=== PATIENT | male | born 1995 | race Caucasian/White ===

== ENCOUNTER 2016-05-20 12:11 | Emergency (ER) | payer MEDICAID, OTHER, SELFPAY ==
[~2016-05-20 12:11] MED LIST: ADDE30CA PO; ALBU1.25 INH; BACI500O8 TOP; BACT800T5 PO; FLUT11IN INH; MOTR200T44 PO; TYLE325T5 PO; ZYRT10CA PO
--- NOTE | 2016-05-20 14:06 | EDDOCDS ---
Physician Documentation [facility] Name: Juan Gomez Age: 21 yrs Sex: Male : 1995 Arrival Date: 05/20/2016 Time: 12:11 Bed TR8 Private MD: Clinton Mcknight Disposition: 05/20/16 13:21 Discharged to Home/Self Care. Impression: Dental caries - Tooth Pain/Abscess/Fracture. - Condition is Stable. - Discharge Instructions: Dental Pain, Tooth Fracture, Abscessed Tooth, [id number]. - Prescriptions for Clindamycin HCl 300 mg Oral Capsule - take 1 capsule by ORAL route every 6 hours; 40 capsule. Ibuprofen 800 mg Oral Tablet - take 1 tablet by ORAL route every 8 hours As needed take with food; 30 tablet. [place] 5- 325 mg Oral Tablet - take 1 tablet by ORAL route every 6 hours As needed MDD: 4 tabs; 6 tablet. - Referral List Call for Appointment, Dental Referral List, Medication Reconciliation, Local Pharmacy Hours form. - Follow up: Dentist Your; When: 1 - 2 days; Reason: Further diagnostic work-up, Recheck today's complaints, Continuance of care. Follow [facility]: [facility] ; When: 1 - 2 days; Reason: Recheck today's complaints, Continuance of care. Follow up: Emergency Department; Reason: Worsening of conditions. - Problem is new. - Symptoms are unchanged. Historical: - Allergies: no known allergies; - Home Meds: 1. ibuprofen 800 mg Oral tab as needed (Last dose: 05/20/2016 09:00) - PMHx: Asthma; - PSHx: ganglion cyst removal; Adenoidectomy; Tubes in ears; - Social history: Smoking status: Patient uses tobacco products, heavy tobacco smoker. No barriers to communication noted. - Family history: Not pertinent. - : The pt / caregiver states he / she is not on anticoagulants. Home medication list is obtained from the patient. - Exposure Risk Screening:: None identified. Vital Signs: 05/20 12:13 BP 163 / 103; Pulse 89; Resp 18 S; Temp 98.3(O); Pulse Ox 100% on R/A; Weight 63.5 kg / gr2 139.99 lbs (R); Height 6 ft. 1 in. (185.42 cm) (R); Pain 8/10; 13:01 BP 142 / 84 LA Sitting (man/); srm 12:13 Body Mass Index 18.47 (63.50 kg, 185.42 cm) gr2 MDM: 12:57 Recheck B/P ordered. ef1 13:01 Financial registration complete. 13:08 [facility] Payment Agreement was scanned into [employer] and attached to record. Signatures: Joellen Soto, RN RN [facility] Marylou Enciso, Reg Reg Rosetta Whitney, PA-C PA-C 1 Cynthia Esteves RN RN [facility] The chart was reviewed and I authenticate all verbal orders and agree with the evaluation and treatment provided.Attachments: 13:08 [facility] Payment Agreement lg MTDD
--- NOTE | 2016-05-20 14:06 | EDDOCDS ---
Nurse's Notes [facility] Name: Juan Gomez Age: 21 yrs Sex: Male : 1995 Arrival Date: 05/20/2016 Time: 12:11 Bed TR8 Private MD: Clinton Mcknight Diagnosis: Dental caries-Tooth Pain/Abscess/Fracture Presentation: 05/20 12:16 Presenting complaint: Patient states: upper left jaw and cheek pain started yesterday [facility] feels it is from site of broken tooth, tender to touch face, can't eat. Adult Sepsis Screening: The patient does not have new or worsening altered mentation. Patient's respiratory rate is less than 22. Systolic blood pressure is greater than 100. Patient has a qSOFA score of 0- Negative Sepsis Screen. Suicide/Homicide risk assessment- the patient denies having any suicidal and/or homicidal ideations and does not present with any other emotional, behavioral or mental health complaints. Status: Patient is not a automobile service advisor or dependent. Transition of care: patient was not received from another setting of care. 12:16 Acuity: BRIANNA Level 4 [facility] 12:16 Method Of Arrival: Walkin/Carried/Asstd [facility] Triage Assessment: 12:19 General: Appears in no apparent distress, uncomfortable, Behavior is appropriate for [facility] age, cooperative. Pain: Location: nose and mouth Pain currently is 8 out of 10 on a pain scale. HIV screening NA for this visit Offered previously. EENT: Reports pain in nose, left cheek and mouth Pain is 8 out of 10 on a pain scale. Respiratory: Airway is patent Respiratory effort is even, unlabored, Respiratory pattern is regular, symmetrical. Derm: Skin is pink, warm & dry. Historical: - Allergies: no known allergies; - Home Meds: 1. ibuprofen 800 mg Oral tab as needed (Last dose: 05/20/2016 09:00) - PMHx: Asthma; - PSHx: ganglion cyst removal; Adenoidectomy; Tubes in ears; - Social history: Smoking status: Patient uses tobacco products, heavy tobacco smoker. No barriers to communication noted. - Family history: Not pertinent. - : The pt / caregiver states he / she is not on anticoagulants. Home medication list is obtained from the patient. - Exposure Risk Screening:: None identified. Screenin:36 Screening information is obtained from the patient. Fall risk: No risks identified. srm Assistance ADL's: requires no assistance with activities of daily living. Abuse/DV Screen: The patient / caregiver reports he/she is: not in a situation that causes fear, pain or injury. Nutritional screening: No deficits noted. Advance Directives: There is no active DNR order. home support is adequate. Assessment: 13:35 General: Appears in no apparent distress, Behavior is appropriate for age, cooperative. srm EENT:. 13:36 EENT: Reports left lower jaw pain. Respiratory: No deficits noted. GI: No deficits srm noted. Vital Signs: 12:13 BP 163 / 103; Pulse 89; Resp 18 S; Temp 98.3(O); Pulse Ox 100% on R/A; Weight 63.5 kg gr2 (R); Height 6 ft. 1 in. (185.42 cm) (R); Pain 8/10; 13:01 BP 142 / 84 LA Sitting (man/); srm 12:13 Body Mass Index 18.47 (63.50 kg, 185.42 cm) gr2 Vitals: 12:13 Log In Time: May 20, 2016 at 12:13. gr2 ED Course: 12:12 Patient visited by Maxwell Barragan. gr2 12:12 Clinton Mcknight is Private Physician. gr2 12:12 Patient moved to Waiting gr2 12:13 Patient visited by Maxwell Barragan. gr2 12:13 Patient moved to Pre RCE gr2 12:18 Triage Initiated [facility] 12:46 Patient moved to Triage 2 srm 12:56 [facility] Whitney [facility] ef1 12:56 Adriana Rodriguez MD is Attending Physician. ef1 12:56 Patient visited by Rosetta Whitney PA-C. ef1 13:07 Patient name changed from Juan\S\W\S\Rounds\S\ to Juan\S\Mik\S\Rounds. EDMS 13:08 [facility] Payment Agreement was scanned into [employer] and attached to record. lg 13:21 Your, Dentist is Referral Physician. ef1 13:21 [facility] is Referral Physician. ef1 13:35 Patient moved to TR3 srm 13:36 The patient / caregiver is instructed regarding the plan of care and ED course. srm Accompanied by Significant Other, Patient has correct armband on for positive identification. 13:36 No IV's were initiated during this patient's visit. No procedures done that require srm assistance. 13:55 Patient moved to TR8 dem1 Order Results: There are currently no results for this order. Outcome: 13:21 Discharge ordered by Provider. ef1 13:36 Discharge Assessment: Patient awake, alert and oriented x 3. No cognitive and/or srm functional deficits noted. Patient verbalized understanding of disposition instructions. patient administered narcotics - no. The following High Risk Discharge criteria are identified: None. Discharged to home ambulatory, with significant other. Condition: stable. Discharge instructions given to patient, Instructed on discharge instructions, follow up and referral plans. medication usage, Demonstrated understanding of instructions, medications, Pt was receptive of discharge instructions/ teaching. Prescriptions given X 3. No special radiology studies were completed. Property sent home with patient. 14:06 Patient left the ED. srm Signatures: Dispatcher [employer] EDMS Joellen Soto, RN RN [facility] Marylou Enciso Reg Reg lg Feola, Erica, PA-C PA-C ef1 Madyson Jolly dem1 Cynthia Esteves RN RN [facility] Maxwell Barragan 2 [facility]
--- NOTE | 2016-05-22 15:07 | EDDOCDS ---
Physician Documentation [facility] Name: Juan Gomez Age: 21 yrs Sex: Male : 1995 Arrival Date: 05/20/2016 Time: 12:11 Bed TR8 Private MD: Clinton Mcknight Disposition: 05/20/16 13:21 Discharged to Home/Self Care. Impression: Dental caries - Tooth Pain/Abscess/Fracture. - Condition is Stable. - Discharge Instructions: Dental Pain, Tooth Fracture, Abscessed Tooth, [id number]. - Prescriptions for Clindamycin HCl 300 mg Oral Capsule - take 1 capsule by ORAL route every 6 hours; 40 capsule. Ibuprofen 800 mg Oral Tablet - take 1 tablet by ORAL route every 8 hours As needed take with food; 30 tablet. [place] 5- 325 mg Oral Tablet - take 1 tablet by ORAL route every 6 hours As needed MDD: 4 tabs; 6 tablet. - Referral List Call for Appointment, Dental Referral List, Medication Reconciliation, Local Pharmacy Hours form. - Follow up: Dentist Your; When: 1 - 2 days; Reason: Further diagnostic work-up, Recheck today's complaints, Continuance of care. Follow up: [facility] ; When: 1 - 2 days; Reason: Recheck today's complaints, Continuance of care. Follow up: Emergency Department; Reason: Worsening of conditions. - Problem is new. - Symptoms are unchanged. Historical: - Allergies: no known allergies; - Home Meds: 1. ibuprofen 800 mg Oral tab as needed (Last dose: 05/20/2016 09:00) - PMHx: Asthma; - PSHx: ganglion cyst removal; Adenoidectomy; Tubes in ears; - Social history: Smoking status: Patient uses tobacco products, heavy tobacco smoker. No barriers to communication noted. - Family history: Not pertinent. - : The pt / caregiver states he / she is not on anticoagulants. Home medication list is obtained from the patient. - Exposure Risk Screening:: None identified. Vital Signs: 05/20 12:13 BP 163 / 103; Pulse 89; Resp 18 S; Temp 98.3(O); Pulse Ox 100% on R/A; Weight 63.5 kg / gr2 139.99 lbs (R); Height 6 ft. 1 in. (185.42 cm) (R); Pain 8/10; 13:01 BP 142 / 84 LA Sitting (man/); srm 12:13 Body Mass Index 18.47 (63.50 kg, 185.42 cm) gr2 MDM: 12:57 Recheck B/P ordered. ef1 13:01 Financial registration complete. lg 13:08 [facility] Payment Agreement was scanned into [employer] and attached to record. lg 17:49 T-Sheet-- Draft Copy was scanned into [employer] and attached to record. klr Signatures: Joellen Soto, NOLA RN [facility] Marylou Enciso, Reg Reg Rosetta Whitney, PA-C PA-C ef1 Cynthia Esteves RN RN [facility] Radha Em klr The chart was reviewed and I authenticate all verbal orders and agree with the evaluation and treatment provided.Attachments: 13:08 [facility] Payment Agreement lg 17:49 T-Sheet-- Draft Copy klr Chart Complete MTDD
--- NOTE | 2016-05-22 15:07 | EDDOCDS ---
Nurse's Notes [facility] Name: Juan Gomez Age: 21 yrs Sex: Male : 1995 Arrival Date: 05/20/2016 Time: 12:11 Bed TR8 Private MD: Clinton Mcknight Diagnosis: Dental caries-Tooth Pain/Abscess/Fracture Presentation: 05/20 12:16 Presenting complaint: Patient states: upper left jaw and cheek pain started yesterday [facility] feels it is from site of broken tooth, tender to touch face, can't eat. Adult Sepsis Screening: The patient does not have new or worsening altered mentation. Patient's respiratory rate is less than 22. Systolic blood pressure is greater than 100. Patient has a qSOFA score of 0- Negative Sepsis Screen. Suicide/Homicide risk assessment- the patient denies having any suicidal and/or homicidal ideations and does not present with any other emotional, behavioral or mental health complaints. Status: Patient is not a supervisor public message service or dependent. Transition of care: patient was not received from another setting of care. 12:16 Acuity: BRIANNA Level 4 [facility] 12:16 Method Of Arrival: Walkin/Carried/Asstd [facility] Triage Assessment: 12:19 General: Appears in no apparent distress, uncomfortable, Behavior is appropriate for [facility] age, cooperative. Pain: Location: nose and mouth Pain currently is 8 out of 10 on a pain scale. HIV screening NA for this visit Offered previously. EENT: Reports pain in nose, left cheek and mouth Pain is 8 out of 10 on a pain scale. Respiratory: Airway is patent Respiratory effort is even, unlabored, Respiratory pattern is regular, symmetrical. Derm: Skin is pink, warm & dry. Historical: - Allergies: no known allergies; - Home Meds: 1. ibuprofen 800 mg Oral tab as needed (Last dose: 05/20/2016 09:00) - PMHx: Asthma; - PSHx: ganglion cyst removal; Adenoidectomy; Tubes in ears; - Social history: Smoking status: Patient uses tobacco products, heavy tobacco smoker. No barriers to communication noted. - Family history: Not pertinent. - : The pt / caregiver states he / she is not on anticoagulants. Home medication list is obtained from the patient. - Exposure Risk Screening:: None identified. Screenin:36 Screening information is obtained from the patient. Fall risk: No risks identified. srm Assistance ADL's: requires no assistance with activities of daily living. Abuse/DV Screen: The patient / caregiver reports he/she is: not in a situation that causes fear, pain or injury. Nutritional screening: No deficits noted. Advance Directives: There is no active DNR order. home support is adequate. Assessment: 13:35 General: Appears in no apparent distress, Behavior is appropriate for age, cooperative. srm EENT:. 13:36 EENT: Reports left lower jaw pain. Respiratory: No deficits noted. GI: No deficits srm noted. Vital Signs: 12:13 BP 163 / 103; Pulse 89; Resp 18 S; Temp 98.3(O); Pulse Ox 100% on R/A; Weight 63.5 kg gr2 (R); Height 6 ft. 1 in. (185.42 cm) (R); Pain 8/10; 13:01 BP 142 / 84 LA Sitting (man/); srm 12:13 Body Mass Index 18.47 (63.50 kg, 185.42 cm) gr2 Vitals: 12:13 Log In Time: May 20, 2016 at 12:13. gr2 ED Course: 12:12 Patient visited by Maxwell Barragan. gr2 12:12 Clinton Mcknight is Private Physician. gr2 12:12 Patient moved to Waiting gr2 12:13 Patient visited by Maxwell Barragan. gr2 12:13 Patient moved to Pre RCE gr2 12:18 Triage Initiated [facility] 12:46 Patient moved to Triage 2 srm 12:56 Rosetta Whitney [facility]C [facility] ef1 12:56 Adriana Rodriguez MD is Attending Physician. ef1 12:56 Patient visited by Rosetta Whitney PA-C. ef1 13:07 Patient name changed from Juan\S\W\S\Rounds\S\ to Juan\S\Mik\S\Rounds. EDMS 13:08 [facility] Payment Agreement was scanned into [employer] and attached to record. lg 13:21 Your, Dentist is Referral Physician. ef1 13:21 [facility] is Referral Physician. ef1 13:35 Patient moved to TR3 srm 13:36 The patient / caregiver is instructed regarding the plan of care and ED course. srm Accompanied by Significant Other, Patient has correct armband on for positive identification. 13:36 No IV's were initiated during this patient's visit. No procedures done that require srm assistance. 13:55 Patient moved to TR8 dem1 17:49 T-Sheet-- Draft Copy was scanned into [employer] and attached to record. klr Order Results: There are currently no results for this order. Outcome: 13:21 Discharge ordered by Provider. ef1 13:36 Discharge Assessment: Patient awake, alert and oriented x 3. No cognitive and/or srm functional deficits noted. Patient verbalized understanding of disposition instructions. patient administered narcotics - no. The following High Risk Discharge criteria are identified: None. Discharged to home ambulatory, with significant other. Condition: stable. Discharge instructions given to patient, Instructed on discharge instructions, follow up and referral plans. medication usage, Demonstrated understanding of instructions, medications, Pt was receptive of discharge instructions/ teaching. Prescriptions given X 3. No special radiology studies were completed. Property sent home with patient. 14:06 Patient left the ED. srm Signatures: [facility]patcher [facility] EDMS Joellen Soto, RN RN [facility] Marylou Enciso, Reg Reg lg Rosetta Whitney, PA-C PA-C ef1 Madyson Jolly dem1 Cynthia Esteves RN RN [facility] Maxwell Barragan 2 Radha Em Chart Complete MTDD
--- NOTE | 2016-05-22 15:07 | EDDOCDS ---
Physician Documentation [facility] Name: Juan Gomez Age: 21 yrs Sex: Male : 1995 Arrival Date: 05/20/2016 Time: 12:11 Bed TR8 Private MD: Clinton Mcknight Disposition: 05/20/16 13:21 Discharged to Home/Self Care. Impression: Dental caries - Tooth Pain/Abscess/Fracture. - Condition is Stable. - Discharge Instructions: Dental Pain, Tooth Fracture, Abscessed Tooth, Ropr-zh-[id number]. - Prescriptions for Clindamycin HCl 300 mg Oral Capsule - take 1 capsule by ORAL route every 6 hours; 40 capsule. Ibuprofen 800 mg Oral Tablet - take 1 tablet by ORAL route every 8 hours As needed take with food; 30 tablet. [place] 5- 325 mg Oral Tablet - take 1 tablet by ORAL route every 6 hours As needed MDD: 4 tabs; 6 tablet. - Referral List Call for Appointment, Dental Referral List, Medication Reconciliation, Local Pharmacy Hours form. - Follow up: Dentist Your; When: 1 - 2 days; Reason: Further diagnostic work-up, Recheck today's complaints, Continuance of care. Follow up: [facility] ; When: 1 - 2 days; Reason: Recheck today's complaints, Continuance of care. Follow up: Emergency Department; Reason: Worsening of conditions. - Problem is new. - Symptoms are unchanged. Historical: - Allergies: no known allergies; - Home Meds: 1. ibuprofen 800 mg Oral tab as needed (Last dose: 05/20/2016 09:00) - PMHx: Asthma; - PSHx: ganglion cyst removal; Adenoidectomy; Tubes in ears; - Social history: Smoking status: Patient uses tobacco products, heavy tobacco smoker. No barriers to communication noted. - Family history: Not pertinent. - : The pt / caregiver states he / she is not on anticoagulants. Home medication list is obtained from the patient. - Exposure Risk Screening:: None identified. Vital Signs: 05/20 12:13 BP 163 / 103; Pulse 89; Resp 18 S; Temp 98.3(O); Pulse Ox 100% on R/A; Weight 63.5 kg / gr2 139.99 lbs (R); Height 6 ft. 1 in. (185.42 cm) (R); Pain 8/10; 13:01 BP 142 / 84 LA Sitting (man/); srm 12:13 Body Mass Index 18.47 (63.50 kg, 185.42 cm) gr2 MDM: 12:57 Recheck B/P ordered. ef1 13:01 Financial registration complete. lg 13:08 [facility] Payment Agreement was scanned into [employer] and attached to record. lg 17:49 T-Sheet-- Draft Copy was scanned into [employer] and attached to record. klr Signatures: Joellen Soto, [place] RN [facility] Marylou Enciso, Reg Reg Rosetta Whitney, PA-C PA-C ef1 Cynthia Esteves RN RN [facility] Radha Em klr The chart was reviewed and I authenticate all verbal orders and agree with the evaluation and treatment provided.Attachments: 13:08 [facility] Payment Agreement lg 17:49 T-Sheet-- Draft Copy klr Chart Complete MTDD
== END 2016-05-20 14:06 | disposition home or self-care (01) ==
LOC: M ED 12:11
DX: K02.9 Dental caries, unspecified (principal); S02.5XXA Fracture of tooth (traumatic), initial encounter for closed fracture; X58.XXXA Exposure to other specified factors, initial encounter; Y92.89 Other specified places as the place of occurrence of the external cause; Y93.89 Activity, other specified; Y99.8 Other external cause status; J45.909 Unspecified asthma, uncomplicated; F17.200 Nicotine dependence, unspecified, uncomplicated

== ENCOUNTER 2016-05-23 11:54 | Emergency (ER) | payer SELFPAY ==
[2016-05-23] MEDS ORDERED: MORPHINE 4 MG/ML 1ML SYRINGE As Ordered ONE (12:29)
[2016-05-23] MEDS ORDERED: CLINDAMYCIN INJ 900MG/6ML VIAL As Ordered ONE (12:34)
[2016-05-23 12:51] LABS: ANION GAP 8 MEQ/L (8-16); BLOOD UREA NITROGEN 7 MG/DL (7-18); CALCIUM LEVEL 9.7 MG/DL (8.5-10.1); CARBON DIOXIDE LEVEL 28 MEQ/L (21-32); CHLORIDE LEVEL 102 MEQ/L (98-107); CREATININE FOR GFR 0.95 MG/DL (0.70-1.30); GLOMERULAR FILTRATION RATE > 60.0 (>60); GLUCOSE, FASTING 118 MG/DL (70-105); POTASSIUM SERUM 4.2 MEQ/L (3.5-5.1); SODIUM LEVEL 138 MEQ/L (136-145)
[2016-05-23 12:55] LABS: BASO % 0.3 % (0.0-1.0); EOS # 0.1 K/mm3 (0.0-0.50); EOS % 0.8 % (0.0-3.0); LARGE UNSTAINED CELL # 0.2 K/mm3 (0.0-0.4); LARGE UNSTAINED CELL % 1.4 % (0.0-4.0); LYMPH # 1.7 K/mm3 (1.5-6.5); LYMPH % 13.4 % (24.0-44.0); MEAN CORPUSCULAR HEMOGLOBIN 30.7 pg (27.0-33.0); MEAN CORPUSCULAR HGB CONC 34.2 g/dl (32.0-36.5); MEAN CORPUSCULAR VOLUME 89.8 fl (80.0-96.0); MONO # 0.8 K/mm3 (0.0-0.8); MONO % 6.5 % (0.0-5.0); NEUTROPHILS # 9.9 K/mm3 (1.8-7.7); NEUTROPHILS % 77.6 % (36.0-66.0); PLATELET COUNT, AUTOMATED 241 k/mm3 (150-450); RED CELL DISTRIBUTION WIDTH 12.2 % (11.5-14.5); WHITE BLOOD COUNT 12.7 K/mm3 (4.0-10.0)
[2016-05-23] MEDS ORDERED: ISOVUE-370 76% 100ML VIAL (Q9967) As Ordered ONE (13:10)
--- NOTE | 2016-05-23 15:07 | REP ---
CT NECK WITH CONTRAST: HISTORY: Left facial pain. CONTRAST: Isovue-370, 75 mL. There is soft tissue swelling along the buccal surface of the body of the left mandible and mandibular symphysis. There is slight extension of the soft tissue swelling along the lingual surface of the posterior body and angle of the left mandible. Soft tissue swelling is present along the buccal surface of the left maxilla. There is superior extension of the soft tissue swelling along the anterior wall of the left maxillary sinus , left orbit and nasal bones. An abscess 1.4 cm in width is present in the buccal soft tissue along the the buccal surface of the of the left maxilla. Stranding is present in the overlying subcutaneous tissue. The naso- and hypopharynx, larynx, and subglottic trachea are normal in appearance. The salivary and thyroid glands are normal. An enlarged lymph node 1.4 cm in width is present in the left internal jugular chain at the level of the oropharynx. Small lymph nodes less than 1 cm in size are present in the posterior triangles, right internal jugular chain, submandibular, and submental areas. The lung apices are clear. Mucosal thickening is present in the left maxillary sinus. There are possible dental caries involving the 1st and 2nd molar teeth of the right mandible and 2nd molar teeth of the right and left maxilla. IMPRESSION: There is a 1.4 cm abscess in the buccal soft tissue overlying the left maxilla. This is associated with a phlegmon overlying the buccal surface of the the left maxilla and left mandible. Signed by Shukri Ryan MD 05/23/2016 03:53 P
[2016-05-23] MEDS ORDERED: KETOROLAC 30 MG/ML VIAL (J1885) As Ordered ONE (15:25)
[2016-05-23] MEDS ORDERED: UNASYN 3 GM VIAL As Ordered ONE (15:37)
--- NOTE | 2016-05-23 16:20 | EDDOCDS ---
Physician Documentation [facility] Name: Juan Gomez Age: 21 yrs Sex: Male : 1995 Arrival Date: 05/23/2016 Time: 11:54 Bed I2 / M2 Private MD: NO PRIMARY PHYSICIAN, . Disposition: 05/23/16 15:52 Discharged to Home/Self Care. Impression: Periapical abscess without sinus - left maxillary area, Dental caries. - Condition is Stable. - Discharge Instructions: Dental Abscess, Dental Pain. - Prescriptions for Curtis 5- 325 mg Oral Tablet - take 1 tablet by ORAL route every 6 hours As needed MDD: 4 tabs; 6 tablet. - Medication Reconciliation, Local Pharmacy Hours form. - Follow up: Conrad Ron; When: tomorrow at 1130 am; Reason: Recheck today's complaints, Continuance of care. Follow up: Emergency Department; When: As needed; Reason: Trouble breathing, Worsening of conditions. - Problem is new. - Symptoms are unchanged. - Notes: return to ER [facility] around 11pm for another dose of IV antibiotics. go to Dr. Ron's office tomorrow between 11 and 1130am for follow up appointment. Historical: - Allergies: No known drug Allergies; - Home Meds: 1. ibuprofen 800 mg Oral tab as needed (Last dose: 05/23/2016 05:30) 2. amoxicillin 500 mg Oral cap every 4 hours (Last dose: 05/23/2016 05:30) 3. Curtis 5-325 mg Oral tab 1 tab every 4-6 hours (Last dose: 05/22/2016 14:00) - PMHx: Asthma; - PSHx: ganglion cyst removal; Adenoidectomy; Tubes in ears; - Social history: Smoking status: Patient uses tobacco products, heavy tobacco smoker. No barriers to communication noted, The patient speaks fluent Greek, Speaks appropriately for age. - Family history: Not pertinent. - : The pt / caregiver states he / she is not on anticoagulants. Home medication list is obtained from the patient. - Exposure Risk Screening:: None identified. Vital Signs: 05/23 11:56 BP 145 / 82; Pulse 124; Resp 20; Temp 98.3; Pulse Ox 100% ; Weight 63.5 kg / 139.99 elp lbs; Height 6 ft. 1 in. (185.42 cm); Pain 8/10; 12:58 BP 114 / 60; Pulse 90; Resp 18; Temp 98.3(O); Pulse Ox 97% on R/A; Pain 5/10; ck1 15:48 BP 133 / 83; Pulse 92; Resp 18; Temp 97.8; Pulse Ox 97% ; Pain 5/10; jam1 16:13 BP 128 / 79; Pulse 92; Resp 18; Temp 97.2; Pulse Ox 98% ; Pain 5/10; jam1 11:56 Body Mass Index 18.47 (63.50 kg, 185.42 cm) elp MDM: 12:17 IV Saline Lock ordered. ar2 12:17 -Blood Culture (Adults Only), peripheral from different site, or from device/port/PICC ar2 etc. if present ordered. 12:17 NS 0.9% 1000 ml IV at bolus once ordered. ar2 12:17 morphine 4 mg IVP once ordered. ar2 12:17 CBC with Diff Ordered. EDMS 12:17 MED Profile Ordered. EDMS 12:18 -Blood Culture Ordered. EDMS 12:18 CT Neck With Contrast Ordered. EDMS 12:19 -Blood Culture (Adults Only), peripheral from different site, or from device/port/PICC dem1 etc. if present complete. 12:20 BLOOD CULTURES Ordered. EDMS 12:21 Clindamycin 900 mg IVPB once over 30 mins; dilute in 50mL of NS or D5W ordered. ar2 12:53 [facility] Payment Agreement was scanned into [employer] and attached to record. jp5 12:53 Financial registration complete. jp5 14:22 CBC with Diff Reviewed. ar2 14:22 MED Profile Reviewed. ar2 15:24 ketorolac 30 mg IVP once ordered. ar2 15:35 Ampicillin-Sulbactam Sodium 3 grams IVPB once over 30 mins; dilute in 100mL of NS or ar2 D5W ordered. Administered Medications: 12:33 Drug: NS 0.9% 1000 ml [sodium chloride 0.9 % intravenous solution] Route: IV; Rate: ck1 bolus; Site: right antecubital; 12:33 Drug: morphine 4 mg [morphine 4 mg/mL intravenous cartridge (1 mL)] Route: IVP; Site: ck1 right antecubital; 12:58 Follow up: BP 114 / 60; Pulse 90 bpm; Resp 18 bpm; Temp 98.3 Oral; Pulse Ox 97% RA; ck1 Pain 5/10 Adult; Response: Confirmed pt not driving.; No Adverse Reaction; Pain is decreased 12:39 Drug: Clindamycin 900 mg Route: IVPB; Infused Over: 30 mins; Site: right antecubital; ck1 15:29 Drug: ketorolac 30 mg [ketorolac 30 mg/mL (1 mL) injection solution (1 mL)] Route: IVP; mcp Site: right antecubital; 15:43 Drug: Ampicillin-Sulbactam Sodium 3 grams [ampicillin-sulbactam 1.5 gram solution for ck1 injection] Route: IVPB; Infused Over: 30 mins; Site: right antecubital; Signatures: Dispatcher [employer] Meghana Ruiz RN RN ck1 Jose Rafael Gilmore, EDI PAMarcel ar2 Lulu Sanchez RN RN hs1 Madyson Jolly Jennalee jp5 Maegan Velazquez RN [facility] The chart was reviewed and I authenticate all verbal orders and agree with the evaluation and treatment provided.Attachments: 12:53 [facility] Payment Agreement jp5 MTDD
--- NOTE | 2016-05-23 16:20 | EDDOCDS ---
Nurse's Notes [facility] Name: Juan Gomez Age: 21 yrs Sex: Male : 1995 Arrival Date: 05/23/2016 Time: 11:54 Bed I2 / M2 Private MD: NO PRIMARY PHYSICIAN, . Diagnosis: Periapical abscess without sinus-left maxillary area;Dental caries Presentation: 05/23 11:58 Presenting complaint: Patient states: seen here Sunday prescribed clindamycin and hs1 unable to fill script. Patient states took amoxicillin given to patient by mother because she had extra however swelling has gotten worse and patient states swelling now into eye. Adult Sepsis Screening: The patient does not have new or worsening altered mentation. Patient's respiratory rate is less than 22. Systolic blood pressure is greater than 100. Patient has a qSOFA score of 0- Negative Sepsis Screen. Suicide/Homicide risk assessment- the patient denies having any suicidal and/or homicidal ideations and does not present with any other emotional, behavioral or mental health complaints. Status: Patient is not a retail services professional or dependent. Transition of care: patient was not received from another setting of care. 11:58 Acuity: BRIANNA Level 3 hs1 11:58 Method Of Arrival: Walkin/Carried/Asstd hs1 Triage Assessment: 12:04 General: Appears uncomfortable, Behavior is anxious, appropriate for age, cooperative. hs1 Pain: Location: mouth Pain currently is 9 out of 10 on a pain scale. HIV screening NA for this visit Offered previously. Respiratory: Airway is patent Respiratory effort is even, unlabored, Respiratory pattern is regular, symmetrical. Historical: - Allergies: No known drug Allergies; - Home Meds: 1. ibuprofen 800 mg Oral tab as needed (Last dose: 05/23/2016 05:30) 2. amoxicillin 500 mg Oral cap every 4 hours (Last dose: 05/23/2016 05:30) 3. [place] 5-325 mg Oral tab 1 tab every 4-6 hours (Last dose: 05/22/2016 14:00) - PMHx: Asthma; - PSHx: ganglion cyst removal; Adenoidectomy; Tubes in ears; - Social history: Smoking status: Patient uses tobacco products, heavy tobacco smoker. No barriers to communication noted, The patient speaks fluent Arabic, Speaks appropriately for age. - Family history: Not pertinent. - : The pt / caregiver states he / she is not on anticoagulants. Home medication list is obtained from the patient. - Exposure Risk Screening:: None identified. Screenin:32 Screening information is obtained from the patient. Fall risk: No risks identified. mlb1 Assistance ADL's: requires no assistance with activities of daily living. Abuse/DV Screen: The patient / caregiver reports he/she is: not in a situation that causes fear, pain or injury. Nutritional screening: No deficits noted. Advance Directives: There is no active DNR order. home support is adequate. Assessment: 12:31 General: Appears uncomfortable, Behavior is cooperative. Pain: Location: face Pain mlb1 currently is 6 out of 10 on a pain scale. Neurological: No deficits noted. EENT: left side of face swollen and reddened. Respiratory: Airway is patent Respiratory effort is even, unlabored. Derm: Skin is pink, warm & dry. 12:58 General: Patient reports pain has improved to 5/10. Denies NV. No acute distress noted ck1 at this time. SO at bedside. Call light in reach, will continue to monitor patient. 13:45 General: Appears in no apparent distress, Behavior is cooperative. Neurological: No mcp deficits noted. Respiratory: Airway is patent Respiratory effort is even, unlabored. Derm: Skin is pink, warm & dry. 14:41 General: Appears in no apparent distress, Behavior is cooperative. Neurological: No mcp deficits noted. EENT: left side of face remains swollen and reddened. Respiratory: Airway is patent Respiratory effort is even, unlabored. Derm: Skin is pink, warm & dry. 15:30 General: Appears in no apparent distress, comfortable, Behavior is appropriate for age, ck1 cooperative. Pain: Location: face Pain currently is 6 out of 10 on a pain scale. Neurological: Level of Consciousness is awake, alert, obeys commands. Respiratory: Respiratory effort is unlabored, Respiratory pattern is regular, symmetrical. Derm: Skin is pink, warm & dry. Swollen area noted on left cheek and left eye. 16:19 General: Appears in no apparent distress, comfortable, Behavior is appropriate for age, ck1 cooperative. Pain: Location: face Pain currently is 5 out of 10 on a pain scale. Neurological: No deficits noted. Respiratory: Respiratory effort is even, unlabored, Respiratory pattern is regular, symmetrical. Derm: Swollen area noted on left cheek. Vital Signs: 11:56 BP 145 / 82; Pulse 124; Resp 20; Temp 98.3; Pulse Ox 100% ; Weight 63.5 kg; Height 6 elp ft. 1 in. (185.42 cm); Pain 8/10; 12:58 BP 114 / 60; Pulse 90; Resp 18; Temp 98.3(O); Pulse Ox 97% on R/A; Pain 5/10; ck1 15:48 BP 133 / 83; Pulse 92; Resp 18; Temp 97.8; Pulse Ox 97% ; Pain 5/10; jam1 16:13 BP 128 / 79; Pulse 92; Resp 18; Temp 97.2; Pulse Ox 98% ; Pain 5/10; jam1 11:56 Body Mass Index 18.47 (63.50 kg, 185.42 cm) elp Vitals: 11:56 Log In Time: May 23, 2016 at 11:54. [facility] ED Course: 11:55 Patient visited by Alexa Palafox PCA. elp 11:55 Clinton Mcknight is Private Physician. elp 11:55 Patient moved to Waiting elp 11:56 NO PRIMARY PHYSICIAN, . is Private Physician. elp 11:56 Patient visited by Alexa Palafox PCA. elp 11:56 Patient moved to Pre RCE elp 12:02 Triage Initiated hs1 12:05 Patient moved to Triage 3 hs1 12:09 Jose [facility]more [facility]-C [facility] ar2 12:10 Adriana Rodriguez MD is Attending Physician. ar2 12:10 Patient visited by Jose Rafael Gilmore PA-C. ar2 12:14 Patient moved to I2 / M2 dem1 12:30 BLOOD CULTURES Sent. mlb1 12:30 -Blood Culture Sent. mlb1 12:30 MED Profile Sent. mlb1 12:31 CBC with Diff Sent. mlb1 12:33 Patient visited by Meghana Fermin,NOLA. ck1 12:33 Patient visited by Bronson Quarles RN. mlb1 12:33 The patient / caregiver is instructed regarding the plan of care and ED course. Patient mlb1 has correct armband on for positive identification. Bed in low position. Call light in reach. Adult w/ patient. 12:33 Inserted saline lock: 20 gauge in right antecubital area and blood collected. The mlb1 patient tolerated the procedure well. Labs drawn. (by ED staff). Sent per order to lab. Labs/Blood culture drawn. 12:52 Pt greeted and oriented to ED. Patient advised of names of staff involved in care, jam1 location of call amezquita, wait times and NPO status. Patient has correct armband on for positive identification. Placed in gown. Bed in low position. Call light in reach. Side rails up X 1. Adult w/ patient. Door closed. 12:53 [facility] Payment Agreement was scanned into [employer] and attached to record. jp5 12:58 Patient visited by Meghana Fermin,NOLA. ck1 13:53 Patient visited by Meghana Fermin,RN. ck1 14:42 Patient visited by Maegan Velazquez, NOLA. mcp 15:17 Patient visited by Meghana Fermin,RN. ck1 15:19 Patient has correct armband on for positive identification. Bed in low position. Call jam1 light in reach. Side rails up X 1. Adult w/ patient. Door closed. 15:29 Patient visited by Maegan Velazquez, NOLA. mcp 15:36 CT Neck With Contrast Returned. EDMS 15:51 Conrad Ron is Referral Physician. ar2 16:18 No procedures done that require assistance. ck1 16:18 Maintain field IV. Dressing intact. Site clean & dry. SL left in and wrapped with gauze ck1 for recheck in ED later this evening. Site clear. Administered Medications: 12:33 Drug: NS 0.9% 1000 ml [sodium chloride 0.9 % intravenous solution] Route: IV; Rate: ck1 bolus; Site: right antecubital; 12:33 Drug: morphine 4 mg [morphine 4 mg/mL intravenous cartridge (1 mL)] Route: IVP; Site: ck1 right antecubital; 12:58 Follow up: BP 114 / 60; Pulse 90 bpm; Resp 18 bpm; Temp 98.3 Oral; Pulse Ox 97% RA; ck1 Pain 5/10 Adult; Response: Confirmed pt not driving.; No Adverse Reaction; Pain is decreased 12:39 Drug: Clindamycin 900 mg Route: IVPB; Infused Over: 30 mins; Site: right antecubital; ck1 15:29 Drug: ketorolac 30 mg [ketorolac 30 mg/mL (1 mL) injection solution (1 mL)] Route: IVP; [facility] Site: right antecubital; 15:43 Drug: Ampicillin-Sulbactam Sodium 3 grams [ampicillin-sulbactam 1.5 gram solution for ck1 injection] Route: IVPB; Infused Over: 30 mins; Site: right antecubital; Order Results: Lab Order: CBC with Diff; SPEC'M 05/23/16 12:24 Test: WHITE BLOOD COUNT; Value: 12.7; Range: 4.0-10.0; Abnormal: Above high normal; Units: K/mm3; Status: F Test: RED BLOOD COUNT; Value: 5.33; Range: 4.30-6.10; Units: M/mm3; Status: F Test: HEMOGLOBIN; Value: 16.4; Range: 14.0-18.0; Units: g/dl; Status: F Test: HEMATOCRIT; Value: 47.9; Range: 42.0-52.0; Units: %; Status: F Test: MEAN CORPUSCULAR VOLUME; Value: 89.8; Range: 80.0-96.0; Units: fl; Status: F Test: MEAN CORPUSCULAR HEMOGLOBIN; Value: 30.7; Range: 27.0-33.0; Units: pg; Status: F Test: MEAN CORPUSCULAR HGB CONC; Value: 34.2; Range: 32.0-36.5; Units: g/dl; Status: F Test: RED CELL DISTRIBUTION WIDTH; Value: 12.2; Range: 11.5-14.5; Units: %; Status: F Test: PLATELET COUNT, AUTOMATED; Value: 241; Range: 150-450; Units: k/mm3; Status: F Test: NEUTROPHILS %; Value: 77.6; Range: 36.0-66.0; Abnormal: Above high normal; Units: %; Status: F Test: LYMPH %; Value: 13.4; Range: 24.0-44.0; Abnormal: Below low normal; Units: %; Status: F Test: MONO %; Value: 6.5; Range: 0.0-5.0; Abnormal: Above high normal; Units: %; Status: F Test: EOS %; Value: 0.8; Range: 0.0-3.0; Units: %; Status: F Test: BASO %; Value: 0.3; Range: 0.0-1.0; Units: %; Status: F Test: LARGE UNSTAINED CELL %; Value: 1.4; Range: 0.0-4.0; Units: %; Status: F Test: NEUTROPHILS #; Value: 9.9; Range: 1.8-7.7; Abnormal: Above high normal; Units: K/mm3; Status: F Test: LYMPH #; Value: 1.7; Range: 1.5-6.5; Units: K/mm3; Status: F Test: MONO #; Value: 0.8; Range: 0.0-0.8; Units: K/mm3; Status: F Test: EOS #; Value: 0.1; Range: 0.0-0.50; Units: K/mm3; Status: F Test: BASO #; Value: 0.0; Range: 0.0-0.2; Units: K/mm3; Status: F Test: LARGE UNSTAINED CELL #; Value: 0.2; Range: 0.0-0.4; Units: K/mm3; Status: F Lab Order: [facility]; [facility] 05/23/16 12:24 Test: GLUCOSE, FASTING; Value: 118; Range: 70-105; Abnormal: Above high normal; Units: MG/DL; Status: F Test: BLOOD UREA NITROGEN; Value: 7; Range: 7-18; Units: MG/DL; Status: F Test: CREATININE FOR GFR; Value: 0.95; Range: 0.70-1.30; Units: MG/DL; Status: F Test: GLOMERULAR FILTRATION RATE; Value: > 60.0; Range: >60; Status: F Test: SODIUM LEVEL; Value: 138; Range: 136-145; Units: MEQ/L; Status: F Test: POTASSIUM SERUM; Value: 4.2; Range: 3.5-5.1; Units: MEQ/L; Status: F Test: CHLORIDE LEVEL; Value: 102; Range: 98-107; Units: MEQ/L; Status: F Test: CARBON DIOXIDE LEVEL; Value: 28; Range: 21-32; Units: MEQ/L; Status: F Test: ANION GAP; Value: 8; Range: 8-16; Units: MEQ/L; Status: F Test: CALCIUM LEVEL; Value: 9.7; Range: 8.5-10.1; Units: MG/DL; Status: F Test Note: ; Units are mL/min/1.73 m2 Chronic Kidney Disease Staging per NKF: Stage I & II GFR >=60 Normal to Mildly Decreased Stage III GFR 30-59 Moderately Decreased Stage IV GFR 15-29 Severely Decreased Stage V GFR <15 Very Little GFR Left ESRD GFR <15 on SENIOR TECHNICAL SUPPORT ANALYST Radiology Order: CT Neck With Contrast Test: CT Neck With Contrast REASON FOR EXAMINATION: left facial pain ? abscess; ; CT NECK WITH CONTRAST:; ; HISTORY: Left facial pain.; ; CONTRAST: Isovue-370, 75 mL.; ; There is soft tissue swelling along the buccal surface of the body of the left; mandible and mandibular symphysis. There is slight extension of the soft tissue; swelling along the lingual surface of the posterior body and angle of the left; mandible. Soft tissue swelling is present along the buccal surface of the left; maxilla. There is superior extension of the soft tissue swelling along the; anterior wall of the left maxillary sinus and left orbit and nasal bones. An; abscess 1.4 cm in width is present in the buccal soft tissue along the anterior; aspect of the left maxilla. Stranding is present in the overlying subcutaneous; tissue. The naso- and hypopharynx, larynx, and subglottic trachea are normal in; appearance. The salivary and thyroid glands are normal. An enlarged lymph node; 1.4 cm in width is present in the left internal jugular chain at the level of the; oropharynx. Small lymph nodes less than 1 cm in size are present in the posterior; triangles, right internal jugular chain, submandibular, and submental areas. The; lung apices are clear. Mucosal thickening is present in the left maxillary sinus.; There are possible dental caries involving the 1st and 2nd molar teeth of the; right mandible and 2nd molar teeth of the right and left maxilla.; ; IMPRESSION:; There is a 1.4 cm abscess in the buccal soft tissue overlying the anterior left; maxilla. This is associated with an overlying phlegmon involving the left maxilla; and left mandible. along the body of ; ; ; ; Incomplete; Outcome: 15:52 Discharge ordered by Provider. ar2 16:17 Discharge Assessment: Patient awake, alert and oriented x 3. No cognitive and/or ck1 functional deficits noted. Patient verbalized understanding of disposition instructions. patient administered narcotics - yes. Pt provided with safe discharge. The following High Risk Discharge criteria are identified: None. Discharged to home ambulatory. Condition: stable. Discharge instructions given to patient, Instructed on discharge instructions, follow up and referral plans. medication usage, Demonstrated understanding of instructions, medications, Pt was receptive of discharge instructions/ teaching. Prescriptions given X 1. CT Study completed. Property :Personal belongings accompany Pt. 16:19 Patient left the ED. ck1 Signatures: Dispatcher [employer] EDMaegan Lowery, RN RN Cynthia Johnson, IRS AGENT IRS AGENT Bronson Castaneda RN RN mlb1 Meghana Fermin RN RN ck1 Jose Rafael Gilmore, PA-C PA-C ar2 Lulu Sanchez RN RN hs1 Madyson Jolly dem1 Alexa Palafox, IRS AGENT IRS AGENT martinep Ashley Weinstein jp5 [facility]
[2016-05-23] MEDS ORDERED: CLINDAMYCIN 600 MG/50 ML PREMIX BAG As Ordered ONE (23:38)
--- NOTE | 2016-05-25 17:20 | EDDOCDS ---
Physician Documentation [facility] Name: Juan Gomez Age: 21 yrs Sex: Male : 1995 Arrival Date: 05/23/2016 Time: 11:54 Bed I2 / M2 Private MD: NO PRIMARY PHYSICIAN, . Disposition: 05/23/16 15:52 Discharged to Home/Self Care. Impression: Periapical abscess without sinus - left maxillary area, Dental caries. - Condition is Stable. - Discharge Instructions: Dental Abscess, Dental Pain. - Prescriptions for [place] 5- 325 mg Oral Tablet - take 1 tablet by ORAL route every 6 hours As needed MDD: 4 tabs; 6 tablet. - Medication Reconciliation, Local Pharmacy Hours form. - Follow up: Conrad Ron; When: tomorrow at 1130 am; Reason: Recheck today's complaints, Continuance of care. Follow up: Emergency Department; When: As needed; Reason: Trouble breathing, Worsening of conditions. - Problem is new. - Symptoms are unchanged. - Notes: return to ER [facility] around 11pm for another dose of IV antibiotics. go to Dr. Ron's office tomorrow between 11 and 1130am for follow up appointment. Historical: - Allergies: No known drug Allergies; - Home Meds: 1. ibuprofen 800 mg Oral tab as needed (Last dose: 05/23/2016 05:30) 2. amoxicillin 500 mg Oral cap every 4 hours (Last dose: 05/23/2016 05:30) 3. [place] 5-325 mg Oral tab 1 tab every 4-6 hours (Last dose: 05/22/2016 14:00) - PMHx: Asthma; - PSHx: ganglion cyst removal; Adenoidectomy; Tubes in ears; - Social history: Smoking status: Patient uses tobacco products, heavy tobacco smoker. No barriers to communication noted, The patient speaks fluent Syriac, Speaks appropriately for age. - Family history: Not pertinent. - : The pt / caregiver states he / she is not on anticoagulants. Home medication list is obtained from the patient. - Exposure Risk Screening:: None identified. Vital Signs: 05/23 11:56 BP 145 / 82; Pulse 124; Resp 20; Temp 98.3; Pulse Ox 100% ; Weight 63.5 kg / 139.99 elp lbs; Height 6 ft. 1 in. (185.42 cm); Pain 8/10; 12:58 BP 114 / 60; Pulse 90; Resp 18; Temp 98.3(O); Pulse Ox 97% on R/A; Pain 5/10; ck1 15:48 BP 133 / 83; Pulse 92; Resp 18; Temp 97.8; Pulse Ox 97% ; Pain 5/10; jam1 16:13 BP 128 / 79; Pulse 92; Resp 18; Temp 97.2; Pulse Ox 98% ; Pain 5/10; jam1 11:56 Body Mass Index 18.47 (63.50 kg, 185.42 cm) elp MDM: 12:17 IV Saline Lock ordered. ar2 12:17 -Blood Culture (Adults Only), peripheral from different site, or from device/port/PICC ar2 etc. if present ordered. 12:17 NS 0.9% 1000 ml IV at bolus once ordered. ar2 12:17 morphine 4 mg IVP once ordered. ar2 12:17 CBC with Diff Ordered. EDMS 12:17 MED Profile Ordered. EDMS 12:18 -Blood Culture Ordered. EDMS 12:18 CT Neck With Contrast Ordered. EDMS 12:19 -Blood Culture (Adults Only), peripheral from different site, or from device/port/PICC dem1 etc. if present complete. 12:20 BLOOD CULTURES Ordered. EDMS 12:21 Clindamycin 900 mg IVPB once over 30 mins; dilute in 50mL of NS or D5W ordered. ar2 12:53 ON LICENSE OF [facility] Payment Agreement was scanned into [employer] and attached to record. jp5 12:53 Financial registration complete. jp5 14:22 CBC with Diff Reviewed. ar2 14:22 MED Profile Reviewed. ar2 15:24 ketorolac 30 mg IVP once ordered. ar2 15:35 Ampicillin-Sulbactam Sodium 3 grams IVPB once over 30 mins; dilute in 100mL of NS or ar2 D5W ordered. 05/24 12:17 T-Sheet-- Draft Copy was scanned into [employer] and attached to record. gb 12:17 Radiology Report was scanned into [employer] and attached to record. gb Administered Medications: 05/23 12:33 Drug: NS 0.9% 1000 ml [sodium chloride 0.9 % intravenous solution] Route: IV; Rate: ck1 bolus; Site: right antecubital; 12:33 Drug: morphine 4 mg [morphine 4 mg/mL intravenous cartridge (1 mL)] Route: IVP; Site: ck1 right antecubital; 12:58 Follow up: BP 114 / 60; Pulse 90 bpm; Resp 18 bpm; Temp 98.3 Oral; Pulse Ox 97% RA; ck1 Pain 5/10 Adult; Response: Confirmed pt not driving.; No Adverse Reaction; Pain is decreased 12:39 Drug: Clindamycin 900 mg Route: IVPB; Infused Over: 30 mins; Site: right antecubital; ck1 15:29 Drug: ketorolac 30 mg [ketorolac 30 mg/mL (1 mL) injection solution (1 mL)] Route: IVP; [facility] Site: right antecubital; 15:43 Drug: Ampicillin-Sulbactam Sodium 3 grams [ampicillin-sulbactam 1.5 gram solution for ck1 injection] Route: IVPB; Infused Over: 30 mins; Site: right antecubital; Signatures: Dispatcher [employer] EDMS Marina Winter, Reg Reg gb Meghana Fermin,RN RN ck1 Jose Rafael Gilmore, EDI PAMarcel ar2 Lulu Sanchez RN RN hs1 Madyson Jolly1 Ashley Weinstein jp5 Maegan Velazquez RN [facility] The chart was reviewed and I authenticate all verbal orders and agree with the evaluation and treatment provided.Attachments: 12:53 ON LICENSE OF [facility] Payment Agreement jp5 05/24 12:17 T-Sheet-- Draft Copy gb Chart Complete MTDD
--- NOTE | 2016-05-25 17:20 | EDDOCDS ---
Physician Documentation [facility] Name: Juan Gomez Age: 21 yrs Sex: Male : 1995 Arrival Date: 05/23/2016 Time: 11:54 Bed I2 / M2 Private MD: NO PRIMARY PHYSICIAN, . Disposition: 05/23/16 15:52 Discharged to Home/Self Care. Impression: Periapical abscess without sinus - left maxillary area, Dental caries. - Condition is Stable. - Discharge Instructions: Dental Abscess, Dental Pain. - Prescriptions for [place] 5- 325 mg Oral Tablet - take 1 tablet by ORAL route every 6 hours As needed MDD: 4 tabs; 6 tablet. - Medication Reconciliation, Local Pharmacy Hours form. - Follow up: Conrad Ron; When: tomorrow at 1130 am; Reason: Recheck today's complaints, Continuance of care. Follow up: Emergency Department; When: As needed; Reason: Trouble breathing, Worsening of conditions. - Problem is new. - Symptoms are unchanged. - Notes: return to ER [facility] around 11pm for another dose of IV antibiotics. go to Dr. Ron's office tomorrow between 11 and 1130am for follow up appointment. Historical: - Allergies: No known drug Allergies; - Home Meds: 1. ibuprofen 800 mg Oral tab as needed (Last dose: 05/23/2016 05:30) 2. amoxicillin 500 mg Oral cap every 4 hours (Last dose: 05/23/2016 05:30) 3. [place] 5-325 mg Oral tab 1 tab every 4-6 hours (Last dose: 05/22/2016 14:00) - PMHx: Asthma; - PSHx: ganglion cyst removal; Adenoidectomy; Tubes in ears; - Social history: Smoking status: Patient uses tobacco products, heavy tobacco smoker. No barriers to communication noted, The patient speaks fluent Khmer, Speaks appropriately for age. - Family history: Not pertinent. - : The pt / caregiver states he / she is not on anticoagulants. Home medication list is obtained from the patient. - Exposure Risk Screening:: None identified. Vital Signs: 05/23 11:56 BP 145 / 82; Pulse 124; Resp 20; Temp 98.3; Pulse Ox 100% ; Weight 63.5 kg / 139.99 elp lbs; Height 6 ft. 1 in. (185.42 cm); Pain 8/10; 12:58 BP 114 / 60; Pulse 90; Resp 18; Temp 98.3(O); Pulse Ox 97% on R/A; Pain 5/10; ck1 15:48 BP 133 / 83; Pulse 92; Resp 18; Temp 97.8; Pulse Ox 97% ; Pain 5/10; jam1 16:13 BP 128 / 79; Pulse 92; Resp 18; Temp 97.2; Pulse Ox 98% ; Pain 5/10; jam1 11:56 Body Mass Index 18.47 (63.50 kg, 185.42 cm) elp MDM: 12:17 IV Saline Lock ordered. ar2 12:17 -Blood Culture (Adults Only), peripheral from different site, or from device/port/PICC ar2 etc. if present ordered. 12:17 NS 0.9% 1000 ml IV at bolus once ordered. ar2 12:17 morphine 4 mg IVP once ordered. ar2 12:17 CBC with Diff Ordered. EDMS 12:17 MED Profile Ordered. EDMS 12:18 -Blood Culture Ordered. EDMS 12:18 CT Neck With Contrast Ordered. EDMS 12:19 -Blood Culture (Adults Only), peripheral from different site, or from device/port/PICC dem1 etc. if present complete. 12:20 BLOOD CULTURES Ordered. EDMS 12:21 Clindamycin 900 mg IVPB once over 30 mins; dilute in 50mL of NS or D5W ordered. ar2 12:53 [facility] Payment Agreement was scanned into [employer] and attached to record. jp5 12:53 Financial registration complete. jp5 14:22 CBC with Diff Reviewed. ar2 14:22 MED Profile Reviewed. ar2 15:24 ketorolac 30 mg IVP once ordered. ar2 15:35 Ampicillin-Sulbactam Sodium 3 grams IVPB once over 30 mins; dilute in 100mL of NS or ar2 D5W ordered. 05/24 12:17 T-Sheet-- Draft Copy was scanned into [employer] and attached to record. gb 12:17 Radiology Report was scanned into [employer] and attached to record. gb Administered Medications: 05/23 12:33 Drug: NS 0.9% 1000 ml [sodium chloride 0.9 % intravenous solution] Route: IV; Rate: ck1 bolus; Site: right antecubital; 12:33 Drug: morphine 4 mg [morphine 4 mg/mL intravenous cartridge (1 mL)] Route: IVP; Site: ck1 right antecubital; 12:58 Follow up: BP 114 / 60; Pulse 90 bpm; Resp 18 bpm; Temp 98.3 Oral; Pulse Ox 97% RA; ck1 Pain 5/10 Adult; Response: Confirmed pt not driving.; No Adverse Reaction; Pain is decreased 12:39 Drug: Clindamycin 900 mg Route: IVPB; Infused Over: 30 mins; Site: right antecubital; ck1 15:29 Drug: ketorolac 30 mg [ketorolac 30 mg/mL (1 mL) injection solution (1 mL)] Route: IVP; [facility] Site: right antecubital; 15:43 Drug: Ampicillin-Sulbactam Sodium 3 grams [ampicillin-sulbactam 1.5 gram solution for ck1 injection] Route: IVPB; Infused Over: 30 mins; Site: right antecubital; Signatures: Dispatcher [employer] EDMS Marina Winter, Reg Reg gb Meghana Fermin,RN RN ck1 Jose Rafael Gilmore, EDI PAMarcel ar2 Lulu Sanchez RN RN hs1 Madyson Jolly1 Ashley Weinstein jp5 Maegan Velazquez RN [facility] The chart was reviewed and I authenticate all verbal orders and agree with the evaluation and treatment provided.Attachments: 12:53 [facility] Payment Agreement jp5 05/24 12:17 T-Sheet-- Draft Copy gb Chart Complete MTDD
--- NOTE | 2016-05-25 17:20 | EDDOCDS ---
Nurse's Notes [facility] Name: Juan Gomez Age: 21 yrs Sex: Male : 1995 Arrival Date: 05/23/2016 Time: 11:54 Bed I2 / M2 Private MD: NO PRIMARY PHYSICIAN, . Diagnosis: Periapical abscess without sinus-left maxillary area;Dental caries Presentation: 05/23 11:58 Presenting complaint: Patient states: seen here Sunday prescribed clindamycin and hs1 unable to fill script. Patient states took amoxicillin given to patient by mother because she had extra however swelling has gotten worse and patient states swelling now into eye. Adult Sepsis Screening: The patient does not have new or worsening altered mentation. Patient's respiratory rate is less than 22. Systolic blood pressure is greater than 100. Patient has a qSOFA score of 0- Negative Sepsis Screen. Suicide/Homicide risk assessment- the patient denies having any suicidal and/or homicidal ideations and does not present with any other emotional, behavioral or mental health complaints. Status: Patient is not a media services specialist or dependent. Transition of care: patient was not received from another setting of care. 11:58 Acuity: BRIANNA Level 3 hs1 11:58 Method Of Arrival: Walkin/Carried/Asstd hs1 Triage Assessment: 12:04 General: Appears uncomfortable, Behavior is anxious, appropriate for age, cooperative. hs1 Pain: Location: mouth Pain currently is 9 out of 10 on a pain scale. HIV screening NA for this visit Offered previously. Respiratory: Airway is patent Respiratory effort is even, unlabored, Respiratory pattern is regular, symmetrical. Historical: - Allergies: No known drug Allergies; - Home Meds: 1. ibuprofen 800 mg Oral tab as needed (Last dose: 05/23/2016 05:30) 2. amoxicillin 500 mg Oral cap every 4 hours (Last dose: 05/23/2016 05:30) 3. [place] 5-325 mg Oral tab 1 tab every 4-6 hours (Last dose: 05/22/2016 14:00) - PMHx: Asthma; - PSHx: ganglion cyst removal; Adenoidectomy; Tubes in ears; - Social history: Smoking status: Patient uses tobacco products, heavy tobacco smoker. No barriers to communication noted, The patient speaks fluent Maori, Speaks appropriately for age. - Family history: Not pertinent. - : The pt / caregiver states he / she is not on anticoagulants. Home medication list is obtained from the patient. - Exposure Risk Screening:: None identified. Screenin:32 Screening information is obtained from the patient. Fall risk: No risks identified. mlb1 Assistance ADL's: requires no assistance with activities of daily living. Abuse/DV Screen: The patient / caregiver reports he/she is: not in a situation that causes fear, pain or injury. Nutritional screening: No deficits noted. Advance Directives: There is no active DNR order. home support is adequate. Assessment: 12:31 General: Appears uncomfortable, Behavior is cooperative. Pain: Location: face Pain mlb1 currently is 6 out of 10 on a pain scale. Neurological: No deficits noted. EENT: left side of face swollen and reddened. Respiratory: Airway is patent Respiratory effort is even, unlabored. Derm: Skin is pink, warm & dry. 12:58 General: Patient reports pain has improved to 5/10. Denies NV. No acute distress noted ck1 at this time. SO at bedside. Call light in reach, will continue to monitor patient. 13:45 General: Appears in no apparent distress, Behavior is cooperative. Neurological: No mcp deficits noted. Respiratory: Airway is patent Respiratory effort is even, unlabored. Derm: Skin is pink, warm & dry. 14:41 General: Appears in no apparent distress, Behavior is cooperative. Neurological: No mcp deficits noted. EENT: left side of face remains swollen and reddened. Respiratory: Airway is patent Respiratory effort is even, unlabored. Derm: Skin is pink, warm & dry. 15:30 General: Appears in no apparent distress, comfortable, Behavior is appropriate for age, ck1 cooperative. Pain: Location: face Pain currently is 6 out of 10 on a pain scale. Neurological: Level of Consciousness is awake, alert, obeys commands. Respiratory: Respiratory effort is unlabored, Respiratory pattern is regular, symmetrical. Derm: Skin is pink, warm & dry. Swollen area noted on left cheek and left eye. 16:19 General: Appears in no apparent distress, comfortable, Behavior is appropriate for age, ck1 cooperative. Pain: Location: face Pain currently is 5 out of 10 on a pain scale. Neurological: No deficits noted. Respiratory: Respiratory effort is even, unlabored, Respiratory pattern is regular, symmetrical. Derm: Swollen area noted on left cheek. Vital Signs: 11:56 BP 145 / 82; Pulse 124; Resp 20; Temp 98.3; Pulse Ox 100% ; Weight 63.5 kg; Height 6 elp ft. 1 in. (185.42 cm); Pain 8/10; 12:58 BP 114 / 60; Pulse 90; Resp 18; Temp 98.3(O); Pulse Ox 97% on R/A; Pain 5/10; ck1 15:48 BP 133 / 83; Pulse 92; Resp 18; Temp 97.8; Pulse Ox 97% ; Pain 5/10; jam1 16:13 BP 128 / 79; Pulse 92; Resp 18; Temp 97.2; Pulse Ox 98% ; Pain 5/10; jam1 11:56 Body Mass Index 18.47 (63.50 kg, 185.42 cm) elp Vitals: 11:56 Log In Time: May 23, 2016 at 11:54. [facility] ED Course: 11:55 Patient visited by Alexa Palafox PCA. elp 11:55 Clinton Mcknight is Private Physician. elp 11:55 Patient moved to Waiting elp 11:56 NO PRIMARY PHYSICIAN, . is Private Physician. elp 11:56 Patient visited by Alexa Palafox PCA. elp 11:56 Patient moved to Pre RCE elp 12:02 Triage Initiated hs1 12:05 Patient moved to Triage 3 hs1 12:09 Jose Rafael Gilmore PA-C is [facility]. ar2 12:10 Adriana Rodriguez MD is Attending Physician. ar2 12:10 Patient visited by Jose Rafael Gilmore PA-C. ar2 12:14 Patient moved to I2 / M2 dem1 12:30 BLOOD CULTURES Sent. mlb1 12:30 -Blood Culture Sent. mlb1 12:30 MED Profile Sent. mlb1 12:31 CBC with Diff Sent. mlb1 12:33 Patient visited by Meghana Fermin,NOLA. ck1 12:33 Patient visited by Bronson Quarles RN. mlb1 12:33 The patient / caregiver is instructed regarding the plan of care and ED course. Patient mlb1 has correct armband on for positive identification. Bed in low position. Call light in reach. Adult w/ patient. 12:33 Inserted saline lock: 20 gauge in right antecubital area and blood collected. The mlb1 patient tolerated the procedure well. Labs drawn. (by ED staff). Sent per order to lab. Labs/Blood culture drawn. 12:52 Pt greeted and oriented to ED. Patient advised of names of staff involved in care, jam1 location of call amezquita, wait times and NPO status. Patient has correct armband on for positive identification. Placed in gown. Bed in low position. Call light in reach. Side rails up X 1. Adult w/ patient. Door closed. 12:53 [facility] Payment Agreement was scanned into [employer] and attached to record. jp5 12:58 Patient visited by Meghana Fermin,RN. ck1 13:53 Patient visited by Meghana Fermin,RN. ck1 14:42 Patient visited by Maegan Velazquez, RN. mcp 15:17 Patient visited by Meghana Fermin,RN. ck1 15:19 Patient has correct armband on for positive identification. Bed in low position. Call jam1 light in reach. Side rails up X 1. Adult w/ patient. Door closed. 15:29 Patient visited by Maegan Velazquez, NOL[place]. mcp 15:36 CT Neck With Contrast Returned. EDMS 15:51 Conrad Ron is Referral Physician. ar2 16:18 No procedures done that require assistance. ck1 16:18 Maintain field IV. Dressing intact. Site clean & dry. SL left in and wrapped with gauze ck1 for recheck in ED later this evening. Site clear. 05/24 12:17 T-Sheet-- Draft Copy was scanned into [employer] and attached to record. gb 12:17 Radiology Report was scanned into [employer] and attached to record. gb Administered Medications: 05/23 12:33 Drug: NS 0.9% 1000 ml [sodium chloride 0.9 % intravenous solution] Route: IV; Rate: ck1 bolus; Site: right antecubital; 12:33 Drug: morphine 4 mg [morphine 4 mg/mL intravenous cartridge (1 mL)] Route: IVP; Site: ck1 right antecubital; 12:58 Follow up: BP 114 / 60; Pulse 90 bpm; Resp 18 bpm; Temp 98.3 Oral; Pulse Ox 97% RA; ck1 Pain 5/10 Adult; Response: Confirmed pt not driving.; No Adverse Reaction; Pain is decreased 12:39 Drug: Clindamycin 900 mg Route: IVPB; Infused Over: 30 mins; Site: right antecubital; ck1 15:29 Drug: ketorolac 30 mg [ketorolac 30 mg/mL (1 mL) injection solution (1 mL)] Route: IVP; mcp Site: right antecubital; 15:43 Drug: Ampicillin-Sulbactam Sodium 3 grams [ampicillin-sulbactam 1.5 gram solution for ck1 injection] Route: IVPB; Infused Over: 30 mins; Site: right antecubital; Order Results: Lab Order: CBC with Diff; SPEC'M 05/23/16 12:24 Test: WHITE BLOOD COUNT; Value: 12.7; Range: 4.0-10.0; Abnormal: Above high normal; Units: K/mm3; Status: F Test: RED BLOOD COUNT; Value: 5.33; Range: 4.30-6.10; Units: M/mm3; Status: F Test: HEMOGLOBIN; Value: 16.4; Range: 14.0-18.0; Units: g/dl; Status: F Test: HEMATOCRIT; Value: 47.9; Range: 42.0-52.0; Units: %; Status: F Test: MEAN CORPUSCULAR VOLUME; Value: 89.8; Range: 80.0-96.0; Units: fl; Status: F Test: MEAN CORPUSCULAR HEMOGLOBIN; Value: 30.7; Range: 27.0-33.0; Units: pg; Status: F Test: MEAN CORPUSCULAR HGB CONC; Value: 34.2; Range: 32.0-36.5; Units: g/dl; Status: F Test: RED CELL DISTRIBUTION WIDTH; Value: 12.2; Range: 11.5-14.5; Units: %; Status: F Test: PLATELET COUNT, AUTOMATED; Value: 241; Range: 150-450; Units: k/mm3; Status: F Test: NEUTROPHILS %; Value: 77.6; Range: 36.0-66.0; Abnormal: Above high normal; Units: %; Status: F Test: LYMPH %; Value: 13.4; Range: 24.0-44.0; Abnormal: Below low normal; Units: %; Status: F Test: MONO %; Value: 6.5; Range: 0.0-5.0; Abnormal: Above high normal; Units: %; Status: F Test: EOS %; Value: 0.8; Range: 0.0-3.0; Units: %; Status: F Test: BASO %; Value: 0.3; Range: 0.0-1.0; Units: %; Status: F Test: LARGE UNSTAINED CELL %; Value: 1.4; Range: 0.0-4.0; Units: %; Status: F Test: NEUTROPHILS #; Value: 9.9; Range: 1.8-7.7; Abnormal: Above high normal; Units: K/mm3; Status: F Test: LYMPH #; Value: 1.7; Range: 1.5-6.5; Units: K/mm3; Status: F Test: MONO #; Value: 0.8; Range: 0.0-0.8; Units: K/mm3; Status: F Test: EOS #; Value: 0.1; Range: 0.0-0.50; Units: K/mm3; Status: F Test: BASO #; Value: 0.0; Range: 0.0-0.2; Units: K/mm3; Status: F Test: LARGE UNSTAINED CELL #; Value: 0.2; Range: 0.0-0.4; Units: K/mm3; Status: F Lab Order: [facility]; [facility] 05/23/16 12:24 Test: GLUCOSE, FASTING; Value: 118; Range: 70-105; Abnormal: Above high normal; Units: MG/DL; Status: F Test: BLOOD UREA NITROGEN; Value: 7; Range: 7-18; Units: MG/DL; Status: F Test: CREATININE FOR GFR; Value: 0.95; Range: 0.70-1.30; Units: MG/DL; Status: F Test: GLOMERULAR FILTRATION RATE; Value: > 60.0; Range: >60; Status: F Test: SODIUM LEVEL; Value: 138; Range: 136-145; Units: MEQ/L; Status: F Test: POTASSIUM SERUM; Value: 4.2; Range: 3.5-5.1; Units: MEQ/L; Status: F Test: CHLORIDE LEVEL; Value: 102; Range: 98-107; Units: MEQ/L; Status: F Test: CARBON DIOXIDE LEVEL; Value: 28; Range: 21-32; Units: MEQ/L; Status: F Test: ANION GAP; Value: 8; Range: 8-16; Units: MEQ/L; Status: F Test: CALCIUM LEVEL; Value: 9.7; Range: 8.5-10.1; Units: MG/DL; Status: F Test Note: ; Units are mL/min/1.73 m2 Chronic Kidney Disease Staging per NKF: Stage I & II GFR >=60 Normal to Mildly Decreased Stage III GFR 30-59 Moderately Decreased Stage IV GFR 15-29 Severely Decreased Stage V GFR <15 Very Little GFR Left ESRD GFR <15 on [place] HAND Lab Order: -Blood Culture; SPEC'M 05/23/16 12:24 Test: BLOOD CULTURE; Value: No growth after 24 hours . All specimens observed; Status: F Test: BLOOD CULTURE; Value: for 5 days. Results final at that time.; Status: F Test: BLOOD CULTURE; Value: No Growth after 48 hours. All Specimens observed; Status: F Test: BLOOD CULTURE; Value: for 7 days. Results final at that time.; Status: F Lab Order: BLOOD CULTURES; SPEC'M 05/23/16 12:26 Test: BLOOD CULTURE; Value: No growth after 24 hours . All specimens observed; Status: F Test: BLOOD CULTURE; Value: for 5 days. Results final at that time.; Status: F Test: BLOOD CULTURE; Value: No Growth after 48 hours. All Specimens observed; Status: F Test: BLOOD CULTURE; Value: for 7 days. Results final at that time.; Status: F Radiology Order: CT Neck With Contrast Test: CT Neck With Contrast REASON FOR EXAMINATION: left facial pain ? abscess; CT NECK WITH CONTRAST:; ; HISTORY: Left facial pain.; ; CONTRAST: Isovue-370, 75 mL.; ; There is soft tissue swelling along the buccal surface of the body of the left; mandible and mandibular symphysis. There is slight extension of the soft tissue; swelling along the lingual surface of the posterior body and angle of the left; mandible. Soft tissue swelling is present along the buccal surface of the left; maxilla. There is superior extension of the soft tissue swelling along the; anterior wall of the left maxillary sinus , left orbit and nasal bones. An; abscess 1.4 cm in width is present in the buccal soft tissue along the the buccal; surface of the of the left maxilla. Stranding is present in the overlying; subcutaneous tissue. The naso- and hypopharynx, larynx, and subglottic trachea; are normal in appearance. The salivary and thyroid glands are normal. An enlarged; lymph node 1.4 cm in width is present in the left internal jugular chain at the; level of the oropharynx. Small lymph nodes less than 1 cm in size are present in; the posterior triangles, right internal jugular chain, submandibular, and; submental areas. The lung apices are clear. Mucosal thickening is present in the; left maxillary sinus. There are possible dental caries involving the 1st and 2nd; molar teeth of the right mandible and 2nd molar teeth of the right and left; maxilla.; ; IMPRESSION:; ; There is a 1.4 cm abscess in the buccal soft tissue overlying the left maxilla.; This is associated with a phlegmon overlying the buccal surface of the the left; maxilla and left mandible.; ; ; Signed by; Shukri Ryan MD 05/23/2016 03:53 P; Outcome: 15:52 Discharge ordered by Provider. ar2 16:17 Discharge Assessment: Patient awake, alert and oriented x 3. No cognitive and/or ck1 functional deficits noted. Patient verbalized understanding of disposition instructions. patient administered narcotics - yes. Pt provided with safe discharge. The following High Risk Discharge criteria are identified: None. Discharged to home ambulatory. Condition: stable. Discharge instructions given to patient, Instructed on discharge instructions, follow up and referral plans. medication usage, Demonstrated understanding of instructions, medications, Pt was receptive of discharge instructions/ teaching. Prescriptions given X 1. CT Study completed. Property :Personal belongings accompany Pt. 16:19 Patient left the ED. ck1 Signatures: Dispatcher [employer] EDMS Maegan Velazquez RN RN Cynthia Johnson, RESEARCH ASSOCIATE RESEARCH ASSOCIATE priscilla1 Marina Winter, Bronson Ross RN RN mlb1 Meghana Fermin RN RN ck1 Jose Rafael Gilmore, PA-C PA-C ar2 Lulu Sanchez RN RN hs1 Madyson Jolly dem1 Alexa Palafox, RESEARCH ASSOCIATE RESEARCH ASSOCIATE elp Ashley Weinstein jp5 Chart Complete MTDD
== END 2016-05-23 16:19 | disposition home or self-care (01) ==
LOC: M ED 11:54
DX: K04.7 Periapical abscess without sinus (principal); K02.9 Dental caries, unspecified; J45.909 Unspecified asthma, uncomplicated; F17.210 Nicotine dependence, cigarettes, uncomplicated; Z79.1 Long term (current) use of non-steroidal anti-inflammatories (NSAID); Z79.899 Other long term (current) drug therapy
CPT/HCPCS: 36415; 70491; 80048; 85025; 87040; 96374; 96375; 99284; J1885; Q9967

== ENCOUNTER 2016-05-23 22:02 | Emergency (ER) | payer SELFPAY ==
[2016-05-23] MEDS ORDERED: fentaNYL 100 MCG/2 ML INJECTION (J3010) As Ordered ONE (23:33)
[2016-05-23] MEDS ORDERED: UNASYN 3 GM VIAL As Ordered ONE (23:33)
[2016-05-23] MEDS ORDERED: KETOROLAC 30 MG/ML VIAL (J1885) As Ordered ONE (23:33)
--- NOTE | 2016-05-24 01:25 | EDDOCDS ---
Physician Documentation [facility] Name: Juan Gomez Age: 21 yrs Sex: Male : 1995 Arrival Date: 05/23/2016 Time: 22:02 Bed 17 Private MD: NO PRIMARY PHYSICIAN, . Disposition: 05/24/16 00:51 Discharged to Home/Self Care. Impression: Periapical abscess with sinus, Dental caries. - Condition is Stable. - Discharge Instructions: Dental Abscess, Dental Pain. - Medication Reconciliation, Local Pharmacy Hours form. - Follow up: Emergency Department; When: 8:00-9:00 a.m.; Reason: Continuance of care, antibiotic. Follow up: Conrad Ron; When: 05/24/2016; Reason: Recheck today's complaints, Continuance of care, To establish care. - Problem is an ongoing problem. - Symptoms are unchanged. - Notes: Return to the ED at 8 a.m.for further antibiotics or sooner if you develop difficulty swallowing/drooling, difficulty breathing or you have any other concerns Historical: - Allergies: no known allergies; - Home Meds: 1. ibuprofen 800 mg Oral tab as needed (Last dose: 05/23/2016 07:00) 2. [place] 5-325 mg Oral tab 1 tab every 4-6 hours (Last dose: 05/23/2016 19:00) - PMHx: Asthma; periapical abscess d/t dental caries; - PSHx: Tubes in ears; Adenoidectomy; ganglion cyst removal; - Social history: Smoking status: Patient uses tobacco products, current every day smoker. Patient/guardian denies using alcohol, street drugs, No barriers to communication noted, The patient speaks fluent Luxembourgish, Speaks appropriately for age. - Family history: Not pertinent. - : The pt / caregiver states he / she is not on anticoagulants. Home medication list is obtained from the patient. - Exposure Risk Screening:: None identified. Vital Signs: 05/23 22:03 BP 167 / 97; Pulse 114; Resp 18 S; Temp 96.8(O); Pulse Ox 100% on R/A; Weight 63.5 kg / gr2 139.99 lbs (R); Height 6 ft. 0 in. (182.88 cm) (R); Pain 9/10; 05/24 00:55 BP 155 / 67; Pulse 96; Resp 18; Temp 97.7(O); Pulse Ox 97% on R/A; Pain 8/10; bibiana 01:23 BP 165 / 87; Pulse 95; Resp 18; Temp 98.4(O); Pulse Ox 95% ; Pain 4/10; kas2 05/23 22:03 Body Mass Index 18.99 (63.50 kg, 182.88 cm) gr2 MDM: 05/23 23:18 [facility] Payment Agreement was scanned into [employer] and attached to record. [id number] 23:19 IV Saline Lock ordered. le 23:19 Clindamycin 600 mg IVPB once over 30 mins; dilute in 50mL of NS or D5W ordered. le 23:21 Ampicillin-Sulbactam Sodium 3 grams IVPB once over 30 mins; dilute in 100mL of NS or le D5W ordered. 23:21 ketorolac 30 mg IVP once ordered. le 23:30 fentaNYL (PF) 50 mcg IVP once ordered. le 23:43 Financial registration complete. hs2 Administered Medications: 23:49 Drug: Ampicillin-Sulbactam Sodium 3 grams [ampicillin-sulbactam 1.5 gram solution for kas2 injection] Route: IVPB; Infused Over: 30 mins; Site: right antecubital; 23:49 Drug: ketorolac 30 mg [ketorolac 30 mg/mL (1 mL) injection solution (1 mL)] Route: IVP; kas2 Site: right antecubital; 23:49 Drug: fentaNYL (PF) 50 mcg [fentanyl (PF) 50 mcg/mL injection solution (1 mL)] Route: kas2 IVP; Site: right antecubital; 05/24 00:22 Drug: Clindamycin 600 mg [clindamycin 600 mg/50 mL in 5 % dextrose intravenous kas2 piggyback] Route: IVPB; Infused Over: 30 mins; Site: right antecubital; Signatures: Ruben Quiroga MD MD pc Westcott, Lisa, PURCHASING COORDINATOR PURCHASING COORDINATOR Jayna Elias RN RN ttb Crystal Mejia, Reg Reg ks16 Nieves Barnes, Reg Reg hs2 Danitza Garnica RN RN kas2 The chart was reviewed and I authenticate all verbal orders and agree with the evaluation and treatment provided.Attachments: 05/23 23:18 [facility] Payment Agreement [email or web address]
--- NOTE | 2016-05-24 01:25 | EDDOCDS ---
Nurse's Notes [facility] Name: Juan Gomez Age: 21 yrs Sex: Male : 1995 Arrival Date: 05/23/2016 Time: 22:02 Bed 17 Private MD: NO PRIMARY PHYSICIAN, . Diagnosis: Periapical abscess with sinus;Dental caries Presentation: 05/23 22:09 Presenting complaint: Patient states: pt instructed to return to ED tonight around 11pm ttb for IV abx. Here earlier today for periapical abscess-- seen and treated. Apt with oral surgeon tomorrow. Adult Sepsis Screening: The patient does not have new or worsening altered mentation. Patient's respiratory rate is less than 22. Systolic blood pressure is greater than 100. Patient has a qSOFA score of 0- Negative Sepsis Screen. Suicide/Homicide risk assessment- the patient denies having any suicidal and/or homicidal ideations and does not present with any other emotional, behavioral or mental health complaints. Status: Patient is not a customer service attendant or dependent. Transition of care: patient was not received from another setting of care. 22:09 Acuity: BRIANNA Level 3 ttb 22:09 Method Of Arrival: Walkin/Carried/Asstd ttb Triage Assessment: 22:11 General: Appears uncomfortable, well nourished, well groomed, Behavior is appropriate ttb for age, cooperative, pleasant. Pain: Location: left face 9/10. HIV screening NA for this visit Offered previously. Neurological: Level of Consciousness is awake, alert, Oriented to person, place, time. EENT: left side of face red and swollen, denies visual changes . Respiratory: Airway is patent Respiratory effort is even, unlabored, Respiratory pattern is regular, symmetrical. GI: Denies nausea, vomiting. Derm: Skin is normal, left face, red, swollen. Injury Description: No known injury. Historical: - Allergies: no known allergies; - Home Meds: 1. ibuprofen 800 mg Oral tab as needed (Last dose: 05/23/2016 07:00) 2. [place] 5-325 mg Oral tab 1 tab every 4-6 hours (Last dose: 05/23/2016 19:00) - PMHx: Asthma; periapical abscess d/t dental caries; - PSHx: Tubes in ears; Adenoidectomy; ganglion cyst removal; - Social history: Smoking status: Patient uses tobacco products, current every day smoker. Patient/guardian denies using alcohol, street drugs, No barriers to communication noted, The patient speaks fluent Comoran, Speaks appropriately for age. - Family history: Not pertinent. - : The pt / caregiver states he / she is not on anticoagulants. Home medication list is obtained from the patient. - Exposure Risk Screening:: None identified. Screenin:30 Screening information is obtained from the patient. Fall risk: No risks identified. kas2 Assistance ADL's: requires no assistance with activities of daily living. Abuse/DV Screen: The patient / caregiver reports he/she is: not in a situation that causes fear, pain or injury. Nutritional screening: No deficits noted. Advance Directives: Currently, there is no health care proxy. There is no active DNR order. There is no living will. There is no Power of Chauffeur. home support is adequate. Assessment: 23:21 General: Appears in no apparent distress, comfortable, well nourished, well groomed, kas2 Behavior is appropriate for age, cooperative. Pain: Denies pain. Neurological: Level of Consciousness is awake, alert, Oriented to person, place, time. Cardiovascular: Rhythm is regular. Respiratory: Airway is patent Respiratory effort is even, unlabored, Respiratory pattern is regular, symmetrical, Breath sounds are clear bilaterally. Derm: Skin is intact, Skin is dry, Skin is pink, warm & dry. Skin temperature is warm. 05/24 00:23 General: Patient resting in bed watching TV. No apparent distress. Appears comfortable. kas2 Airway patent. Respiratory effort even and unlabored. Call amezquita within reach. Will continue to monitor.. Vital Signs: 05/23 22:03 BP 167 / 97; Pulse 114; Resp 18 S; Temp 96.8(O); Pulse Ox 100% on R/A; Weight 63.5 kg gr2 (R); Height 6 ft. 0 in. (182.88 cm) (R); Pain 9/10; 05/24 00:55 BP 155 / 67; Pulse 96; Resp 18; Temp 97.7(O); Pulse Ox 97% on R/A; Pain 8/10; bibiana 01:23 BP 165 / 87; Pulse 95; Resp 18; Temp 98.4(O); Pulse Ox 95% ; Pain 4/10; kas2 05/23 22:03 Body Mass Index 18.99 (63.50 kg, 182.88 cm) gr2 Vitals: 05/23 22:03 Log In Time: May 23, 2016 at 22:03. gr2 ED Course: 22:03 Patient visited by Maxwell Barragan. gr2 22:03 NO PRIMARY PHYSICIAN, . is Private Physician. gr2 22:03 Patient moved to Waiting gr2 22:04 Patient visited by Maxwell Barragan. gr2 22:04 Patient moved to Pre RCE gr2 22:10 Triage Initiated ttb 22:13 Patient visited by Jayna Cox RN. ttb 23:15 Danitza Garnica RN is Primary Nurse. nn1 23:15 Patient moved to 17 nn1 23:17 Patient visited by Danitza Garnica RN. kas2 23:18 [facility] Payment Agreement was scanned into [employer] and attached to record. ks16 23:19 [facility] le 23:21 Patient visited by Danitza Garnica RN. kas2 23:30 Maintain field IV. Dressing intact. Good blood return noted. Site clean & dry. Gauge & kas2 site: 20G right AC. 23:31 Patient visited by Danitza Garnica RN. kas2 23:34 Patient visited by Tasha Canchola FNP. le 23:50 Patient visited by Danitza Garnica RN. kas2 23:52 Ruben Quiroga MD is Attending Physician. pc 05/24 00:03 Patient visited by Danitza Garnica RN. kas2 00:23 Patient visited by Danitza Garnica RN. kas2 00:51 Conrad Ron is Referral Physician. pc 00:55 Patient visited by Bebe Davis PCA. bibiana 01:22 The patient / caregiver is instructed regarding the plan of care and ED course. kas2 01:22 Discontinued IV bleeding controlled, pressure dressing applied, No redness/swelling at kas2 site. No procedures done that require assistance. 01:23 Patient visited by Danitza Garnica RN. kas2 Administered Medications: 05/23 23:49 Drug: Ampicillin-Sulbactam Sodium 3 grams [ampicillin-sulbactam 1.5 gram solution for kas2 injection] Route: IVPB; Infused Over: 30 mins; Site: right antecubital; 23:49 Drug: ketorolac 30 mg [ketorolac 30 mg/mL (1 mL) injection solution (1 mL)] Route: IVP; kas2 Site: right antecubital; 23:49 Drug: fentaNYL (PF) 50 mcg [fentanyl (PF) 50 mcg/mL injection solution (1 mL)] Route: kas2 IVP; Site: right antecubital; 05/24 00:22 Drug: Clindamycin 600 mg [clindamycin 600 mg/50 mL in 5 % dextrose intravenous kas2 piggyback] Route: IVPB; Infused Over: 30 mins; Site: right antecubital; Order Results: There are currently no results for this order. Outcome: 00:51 Discharge ordered by Provider. 01:22 Discharge Assessment: patient administered narcotics - yes. Pt provided with safe kas2 discharge. The following High Risk Discharge criteria are identified: None. Discharged to home ambulatory. Condition: good Condition: stable Condition: improved. No special radiology studies were completed. Property :Personal belongings accompany Pt. 01:23 Patient left the ED. kas2 Signatures: Ruben Quiroga MD MD pc Tasha Canchola, MANAGEMENT LEAD MANAGEMENT LEADBebe Cotton, FOUNDRY MOLDER FOUNDRY MOLDER Jayna Hubbard RN RN Maxwell Allen gr2 Lorena Mitchell RN RN nn1 Crystal Mejia, Reg Reg ks16 Danitza Garnica RN RN kas2 MTDD
--- NOTE | 2016-05-26 02:25 | EDDOCDS ---
Physician Documentation [facility] Name: Juan Gomez Age: 21 yrs Sex: Male : 1995 Arrival Date: 05/23/2016 Time: 22:02 Bed 17 Private MD: NO PRIMARY PHYSICIAN, . Disposition: 05/24/16 00:51 Discharged to Home/Self Care. Impression: Periapical abscess with sinus, Dental caries. - Condition is Stable. - Discharge Instructions: Dental Abscess, Dental Pain. - Medication Reconciliation, Local Pharmacy Hours form. - Follow up: Emergency Department; When: 8:00-9:00 a.m.; Reason: Continuance of care, antibiotic. Follow up: Conrad Ron; When: 05/24/2016; Reason: Recheck today's complaints, Continuance of care, To establish care. - Problem is an ongoing problem. - Symptoms are unchanged. - Notes: Return to the ED at 8 a.m.for further antibiotics or sooner if you develop difficulty swallowing/drooling, difficulty breathing or you have any other concerns Historical: - Allergies: no known allergies; - Home Meds: 1. ibuprofen 800 mg Oral tab as needed (Last dose: 05/23/2016 07:00) 2. [place] 5-325 mg Oral tab 1 tab every 4-6 hours (Last dose: 05/23/2016 19:00) - PMHx: Asthma; periapical abscess d/t dental caries; - PSHx: Tubes in ears; Adenoidectomy; ganglion cyst removal; - Social history: Smoking status: Patient uses tobacco products, current every day smoker. Patient/guardian denies using alcohol, street drugs, No barriers to communication noted, The patient speaks fluent Slovak, Speaks appropriately for age. - Family history: Not pertinent. - : The pt / caregiver states he / she is not on anticoagulants. Home medication list is obtained from the patient. - Exposure Risk Screening:: None identified. Vital Signs: 05/23 22:03 BP 167 / 97; Pulse 114; Resp 18 S; Temp 96.8(O); Pulse Ox 100% on R/A; Weight 63.5 kg / gr2 139.99 lbs (R); Height 6 ft. 0 in. (182.88 cm) (R); Pain 9/10; 05/24 00:55 BP 155 / 67; Pulse 96; Resp 18; Temp 97.7(O); Pulse Ox 97% on R/A; Pain 8/10; bibiana 01:23 BP 165 / 87; Pulse 95; Resp 18; Temp 98.4(O); Pulse Ox 95% ; Pain 4/10; kas2 05/23 22:03 Body Mass Index 18.99 (63.50 kg, 182.88 cm) gr2 MDM: 05/23 23:18 [facility] Payment Agreement was scanned into [employer] and attached to record. [email or web address] 23:19 IV Saline Lock ordered. le 23:19 Clindamycin 600 mg IVPB once over 30 mins; dilute in 50mL of NS or D5W ordered. le 23:21 Ampicillin-Sulbactam Sodium 3 grams IVPB once over 30 mins; dilute in 100mL of NS or le D5W ordered. 23:21 ketorolac 30 mg IVP once ordered. le 23:30 fentaNYL (PF) 50 mcg IVP once ordered. le 23:43 Financial registration complete. hs2 Administered Medications: 23:49 Drug: Ampicillin-Sulbactam Sodium 3 grams [ampicillin-sulbactam 1.5 gram solution for kas2 injection] Route: IVPB; Infused Over: 30 mins; Site: right antecubital; 23:49 Drug: ketorolac 30 mg [ketorolac 30 mg/mL (1 mL) injection solution (1 mL)] Route: IVP; kas2 Site: right antecubital; 23:49 Drug: fentaNYL (PF) 50 mcg [fentanyl (PF) 50 mcg/mL injection solution (1 mL)] Route: kas2 IVP; Site: right antecubital; 05/24 00:22 Drug: Clindamycin 600 mg [clindamycin 600 mg/50 mL in 5 % dextrose intravenous kas2 piggyback] Route: IVPB; Infused Over: 30 mins; Site: right antecubital; Signatures: Ruben Quiroga MD MD pc Westcott, Lisa, AUTO WASH BUFFER AUTO WASH BUFFER Jayna Elias RN RN ttb Crystal Mejia, Reg Reg ks16 Nieves Barnes, Reg Reg hs2 Danitza Garnica RN RN kas2 The chart was reviewed and I authenticate all verbal orders and agree with the evaluation and treatment provided.Attachments: 05/23 23:18 [facility] [place] [facility] Payment Agreement [email or web address] Chart Complete MTDD
--- NOTE | 2016-05-26 02:25 | EDDOCDS ---
Physician Documentation [facility] Name: Juan Gomez Age: 21 yrs Sex: Male : 1995 Arrival Date: 05/23/2016 Time: 22:02 Bed 17 Private MD: NO PRIMARY PHYSICIAN, . Disposition: 05/24/16 00:51 Discharged to Home/Self Care. Impression: Periapical abscess with sinus, Dental caries. - Condition is Stable. - Discharge Instructions: Dental Abscess, Dental Pain. - Medication Reconciliation, Local Pharmacy Hours form. - Follow up: Emergency Department; When: 8:00-9:00 a.m.; Reason: Continuance of care, antibiotic. Follow up: Conrad Ron; When: 05/24/2016; Reason: Recheck today's complaints, Continuance of care, To establish care. - Problem is an ongoing problem. - Symptoms are unchanged. - Notes: Return to the ED at 8 a.m.for further antibiotics or sooner if you develop difficulty swallowing/drooling, difficulty breathing or you have any other concerns Historical: - Allergies: no known allergies; - Home Meds: 1. ibuprofen 800 mg Oral tab as needed (Last dose: 05/23/2016 07:00) 2. [place] 5-325 mg Oral tab 1 tab every 4-6 hours (Last dose: 05/23/2016 19:00) - PMHx: Asthma; periapical abscess d/t dental caries; - PSHx: Tubes in ears; Adenoidectomy; ganglion cyst removal; - Social history: Smoking status: Patient uses tobacco products, current every day smoker. Patient/guardian denies using alcohol, street drugs, No barriers to communication noted, The patient speaks fluent Venezuelan, Speaks appropriately for age. - Family history: Not pertinent. - : The pt / caregiver states he / she is not on anticoagulants. Home medication list is obtained from the patient. - Exposure Risk Screening:: None identified. Vital Signs: 05/23 22:03 BP 167 / 97; Pulse 114; Resp 18 S; Temp 96.8(O); Pulse Ox 100% on R/A; Weight 63.5 kg / gr2 139.99 lbs (R); Height 6 ft. 0 in. (182.88 cm) (R); Pain 9/10; 05/24 00:55 BP 155 / 67; Pulse 96; Resp 18; Temp 97.7(O); Pulse Ox 97% on R/A; Pain 8/10; bibiana 01:23 BP 165 / 87; Pulse 95; Resp 18; Temp 98.4(O); Pulse Ox 95% ; Pain 4/10; kas2 05/23 22:03 Body Mass Index 18.99 (63.50 kg, 182.88 cm) gr2 MDM: 05/23 23:18 [facility] Payment Agreement was scanned into [employer] and attached to record. [email or web address] 23:19 IV Saline Lock ordered. le 23:19 Clindamycin 600 mg IVPB once over 30 mins; dilute in 50mL of NS or D5W ordered. le 23:21 Ampicillin-Sulbactam Sodium 3 grams IVPB once over 30 mins; dilute in 100mL of NS or le D5W ordered. 23:21 ketorolac 30 mg IVP once ordered. le 23:30 fentaNYL (PF) 50 mcg IVP once ordered. le 23:43 Financial registration complete. hs2 Administered Medications: 23:49 Drug: Ampicillin-Sulbactam Sodium 3 grams [ampicillin-sulbactam 1.5 gram solution for kas2 injection] Route: IVPB; Infused Over: 30 mins; Site: right antecubital; 23:49 Drug: ketorolac 30 mg [ketorolac 30 mg/mL (1 mL) injection solution (1 mL)] Route: IVP; kas2 Site: right antecubital; 23:49 Drug: fentaNYL (PF) 50 mcg [fentanyl (PF) 50 mcg/mL injection solution (1 mL)] Route: kas2 IVP; Site: right antecubital; 05/24 00:22 Drug: Clindamycin 600 mg [clindamycin 600 mg/50 mL in 5 % dextrose intravenous kas2 piggyback] Route: IVPB; Infused Over: 30 mins; Site: right antecubital; Signatures: Ruben Quiroga MD MD pc Westcott, Lisa, PLASTICS PLATER PLASTICS PLATER Jayna Elias RN RN ttb Crystal Mejia, Reg Reg [email or web address] Nieves Barnes, Reg Reg hs2 Danitza Garnica RN RN kas2 The chart was reviewed and I authenticate all verbal orders and agree with the evaluation and treatment provided.Attachments: 05/23 23:18 [facility] [place] Payment Agreement [email or web address] Chart Complete MTDD
--- NOTE | 2016-05-26 02:25 | EDDOCDS ---
Nurse's Notes [facility] Name: Juan Gomez Age: 21 yrs Sex: Male : 1995 Arrival Date: 05/23/2016 Time: 22:02 Bed 17 Private MD: NO PRIMARY PHYSICIAN, . Diagnosis: Periapical abscess with sinus;Dental caries Presentation: 05/23 22:09 Presenting complaint: Patient states: pt instructed to return to ED tonight around 11pm ttb for IV abx. Here earlier today for periapical abscess-- seen and treated. Apt with oral surgeon tomorrow. Adult Sepsis Screening: The patient does not have new or worsening altered mentation. Patient's respiratory rate is less than 22. Systolic blood pressure is greater than 100. Patient has a qSOFA score of 0- Negative Sepsis Screen. Suicide/Homicide risk assessment- the patient denies having any suicidal and/or homicidal ideations and does not present with any other emotional, behavioral or mental health complaints. Status: Patient is not a guest services director or dependent. Transition of care: patient was not received from another setting of care. 22:09 Acuity: BRIANNA Level 3 ttb 22:09 Method Of Arrival: Walkin/Carried/Asstd ttb Triage Assessment: 22:11 General: Appears uncomfortable, well nourished, well groomed, Behavior is appropriate ttb for age, cooperative, pleasant. Pain: Location: left face 9/10. HIV screening NA for this visit Offered previously. Neurological: Level of Consciousness is awake, alert, Oriented to person, place, time. EENT: left side of face red and swollen, denies visual changes . Respiratory: Airway is patent Respiratory effort is even, unlabored, Respiratory pattern is regular, symmetrical. GI: Denies nausea, vomiting. Derm: Skin is normal, left face, red, swollen. Injury Description: No known injury. Historical: - Allergies: no known allergies; - Home Meds: 1. ibuprofen 800 mg Oral tab as needed (Last dose: 05/23/2016 07:00) 2. Franklin 5-325 mg Oral tab 1 tab every 4-6 hours (Last dose: 05/23/2016 19:00) - PMHx: Asthma; periapical abscess d/t dental caries; - PSHx: Tubes in ears; Adenoidectomy; ganglion cyst removal; - Social history: Smoking status: Patient uses tobacco products, current every day smoker. Patient/guardian denies using alcohol, street drugs, No barriers to communication noted, The patient speaks fluent [place], Speaks appropriately for age. - Family history: Not pertinent. - : The pt / caregiver states he / she is not on anticoagulants. Home medication list is obtained from the patient. - Exposure Risk Screening:: None identified. Screenin:30 Screening information is obtained from the patient. Fall risk: No risks identified. kas2 Assistance ADL's: requires no assistance with activities of daily living. Abuse/DV Screen: The patient / caregiver reports he/she is: not in a situation that causes fear, pain or injury. Nutritional screening: No deficits noted. Advance Directives: Currently, there is no health care proxy. There is no active DNR order. There is no living will. There is no Power of [place] Up. home support is adequate. Assessment: 23:21 General: Appears in no apparent distress, comfortable, well nourished, well groomed, kas2 Behavior is appropriate for age, cooperative. Pain: Denies pain. Neurological: Level of Consciousness is awake, alert, Oriented to person, place, time. Cardiovascular: Rhythm is regular. Respiratory: Airway is patent Respiratory effort is even, unlabored, Respiratory pattern is regular, symmetrical, Breath sounds are clear bilaterally. Derm: Skin is intact, Skin is dry, Skin is pink, warm & dry. Skin temperature is warm. 05/24 00:23 General: Patient resting in bed watching TV. No apparent distress. Appears comfortable. kas2 Airway patent. Respiratory effort even and unlabored. Call amezquita within reach. Will continue to monitor.. Vital Signs: 05/23 22:03 BP 167 / 97; Pulse 114; Resp 18 S; Temp 96.8(O); Pulse Ox 100% on R/A; Weight 63.5 kg gr2 (R); Height 6 ft. 0 in. (182.88 cm) (R); Pain 9/10; 05/24 00:55 BP 155 / 67; Pulse 96; Resp 18; Temp 97.7(O); Pulse Ox 97% on R/A; Pain 8/10; bibiana 01:23 BP 165 / 87; Pulse 95; Resp 18; Temp 98.4(O); Pulse Ox 95% ; Pain 4/10; kas2 05/23 22:03 Body Mass Index 18.99 (63.50 kg, 182.88 cm) gr2 Vitals: 05/23 22:03 Log In Time: May 23, 2016 at 22:03. gr2 ED Course: 22:03 Patient visited by Maxwell Barragan. gr2 22:03 NO PRIMARY PHYSICIAN, . is Private Physician. gr2 22:03 Patient moved to Waiting gr2 22:04 Patient visited by Maxwell Barragan. gr2 22:04 Patient moved to Pre RCE gr2 22:10 Triage Initiated ttb 22:13 Patient visited by Jayna Cox RN. ttb 23:15 Danitza Garnica RN is Primary Nurse. nn1 23:15 Patient moved to 17 nn1 23:17 Patient visited by Danitza Garnica RN. kas2 23:18 [facility] Payment Agreement was scanned into FRUCT and attached to record. ks16 23:19 [facility]asha Canchola FNP [facility] le 23:21 Patient visited by Danitza Garnica RN. kas2 23:30 Maintain field IV. Dressing intact. Good blood return noted. Site clean & dry. Gauge & kas2 site: 20G right AC. 23:31 Patient visited by Danitza Garnica RN. kas2 23:34 Patient visited by Tasha Canchola FNP. le 23:50 Patient visited by Danitza Garnica RN. kas2 23:52 Ruben Quiroga MD is Attending Physician. pc 05/24 00:03 Patient visited by Danitza Garnica RN. kas2 00:23 Patient visited by Danitza Garnica RN. kas2 00:51 Conrad Ron is Referral Physician. pc 00:55 Patient visited by Bebe Davis PCA. bibiana 01:22 The patient / caregiver is instructed regarding the plan of care and ED course. kas2 01:22 Discontinued IV bleeding controlled, pressure dressing applied, No redness/swelling at kas2 site. No procedures done that require assistance. 01:23 Patient visited by Danitza Garnica RN. kas2 Administered Medications: 05/23 23:49 Drug: Ampicillin-Sulbactam Sodium 3 grams [ampicillin-sulbactam 1.5 gram solution for kas2 injection] Route: IVPB; Infused Over: 30 mins; Site: right antecubital; 23:49 Drug: ketorolac 30 mg [ketorolac 30 mg/mL (1 mL) injection solution (1 mL)] Route: IVP; kas2 Site: right antecubital; 23:49 Drug: fentaNYL (PF) 50 mcg [fentanyl (PF) 50 mcg/mL injection solution (1 mL)] Route: kas2 IVP; Site: right antecubital; 05/24 00:22 Drug: Clindamycin 600 mg [clindamycin 600 mg/50 mL in 5 % dextrose intravenous kas2 piggyback] Route: IVPB; Infused Over: 30 mins; Site: right antecubital; Order Results: There are currently no results for this order. Outcome: 00:51 Discharge ordered by Provider. 01:22 Discharge Assessment: patient administered narcotics - yes. Pt provided with safe kas2 discharge. The following High Risk Discharge criteria are identified: None. Discharged to home ambulatory. Condition: good Condition: stable Condition: improved. No special radiology studies were completed. Property :Personal belongings accompany Pt. 01:23 Patient left the ED. kas2 Signatures: Ruben Quiroga MD MD pc Tasha Canchola, GEOGRAPHIC INFORMATION SYSTEMS ENGINEER GEOGRAPHIC INFORMATION SYSTEMS ENGINEERBebe Cotton, SPECIAL AGENT SPECIAL AGENT Jayna Hubbard RN RN Maxwell Allen gr2 Lorena Mitchell RN RN nn1 Crystal Mejia, Reg Reg [id number] Danitza Garnica RN RN kas2 Chart Complete MTDD
== END 2016-05-24 01:23 | disposition home or self-care (01) ==
LOC: M ED 22:02
DX: K04.7 Periapical abscess without sinus (principal); K02.9 Dental caries, unspecified; J45.909 Unspecified asthma, uncomplicated; F17.210 Nicotine dependence, cigarettes, uncomplicated; Z79.1 Long term (current) use of non-steroidal anti-inflammatories (NSAID); Z79.899 Other long term (current) drug therapy
CPT/HCPCS: 96374; 96375; 99283; J1885; J3010

== ENCOUNTER 2016-08-05 07:09 | Emergency (ER) | payer OTHER, SELFPAY ==
[~2016-08-05] VITALS: Ht 182.9 cm; Wt 65.8 kg
[2016-08-05] MEDS ORDERED: ALBU17IN2 INH (07:30)
[2016-08-05] MEDS ORDERED: KETOROLAC 30 MG/ML VIAL (J1885) IV ONE (07:45)
[2016-08-05] MEDS ORDERED: ISOVUE-370 76% 100ML VIAL (Q9967) As Ordered ONE (07:53)
[2016-08-05] MEDS ORDERED: ONDANSETRON 4MG/2ML VIAL (J2405) IV ONE (08:15)
[2016-08-05] MEDS ORDERED: AFRI0.056 (09:52)
[2016-08-05] MEDS ORDERED: SUDA30TA PO (09:52)
[2016-08-05] MEDS ORDERED: FLON1SPR (09:53)
[2016-08-05] MEDS ORDERED: AUGM875T27 PO (09:54)
[2016-08-05 10:34] VITALS: BP 138/86
--- NOTE | 2016-08-05 11:24 | REP ---
MAXILLOFACIAL CT WITH CONTRAST: HISTORY: Facial pain. COMPARISON: CT neck 05/23/2016. Small bilateral Ashely cells are present. Moderate mucosal thickening is present in the maxillary sinuses. The remaining sinuses are clear. Mucosal thickening involves the osteomeatal units. The middle and inferior nasal turbinates are partially paradoxical. There is very minimal deviation of the nasal septum to the left. The cribriform plate, medial garcia of orbits, and optic canals are intact. The carotid canals form a segment of the posterior lateral garcia of the sphenoid sinus. The sphenoid sinus septum inserts into the left internal carotid canal wall. The maxilla is edentulous. There are possible dental caries involving the first and second molar teeth of the right mandible. There is dehiscence of the buccal cortex of the left maxilla in the region of the left lateral incisor and canine teeth. A small amount of the soft tissue swelling is present along the buccal surface of the left maxilla consistent with a phlegmon that is decreased compared to the previous study. There is no abscess. IMPRESSION: 1. Sinus mucosal thickening as described above. 2. There is a small amount of residual phlegmon along the buccal surface of the left maxilla decreased compared to the previous study. There is no abscess. Signed by Shukri Ryan MD 08/07/2016 08:01 A
== END 2016-08-05 10:35 | disposition home or self-care (01) ==
LOC: M ED 07:56
DX: J01.90 Acute sinusitis, unspecified (principal); J45.909 Unspecified asthma, uncomplicated; M54.9 Dorsalgia, unspecified
CPT/HCPCS: 36600; 70487; 96374; 96375; 99282; J1885; J2405; Q9967

== ENCOUNTER 2017-04-29 19:09 | Observation (INO) | payer SELFPAY, OTHER ==
[2017-04-29] MEDS: NS 1,000 ML IV ×2 (19:45)
[2017-04-29 20:14] LABS: BEDSIDE GLUCOSE 90 MG/DL (70-105)
[2017-04-29 20:19] LABS: ABG HCO3 28.1 MEQ/L (22.0-26.0); ABG PARTIAL PRESSURE O2 83.6 mmHg (75.0-100.0); ABG STANDARD HCO3 27.1 MEQ/L (22.0-26.0); ABG TOTAL CO2 29.5 MEQ/L (22.0-29.0); ABG pH (ARTERIAL) 7.414 UNITS (7.350-7.450)
[2017-04-29 20:24] LABS: HEMATOCRIT 43.2 % (42.0-52.0); HEMOGLOBIN 14.6 g/dl (14.0-18.0); MEAN CORPUSCULAR HEMOGLOBIN 30.3 pg (27.0-33.0); MEAN CORPUSCULAR HGB CONC 33.8 g/dl (32.0-36.5); MEAN CORPUSCULAR VOLUME 89.6 fl (80.0-96.0); PLATELET COUNT, AUTOMATED 191 10^3/uL (150-450); RED BLOOD COUNT 4.82 10^6/uL (4.30-6.10); RED CELL DISTRIBUTION WIDTH 12.4 % (11.5-14.5); WHITE BLOOD COUNT 8.4 10^3/uL (4.0-10.0)
[2017-04-29 20:44] LABS: ADD MANUAL DIFFER YES; DIFF SLIDE NUMBER 168; POS COUNT POS FLAG
[2017-04-29 20:47] LABS: ATYPICAL LYMPH 10 % (0-5); BASOPHILS 2 % (0-4); EOSINOPHILS 1 % (0-5); LYMPHOCYTES 21 % (16-52); MONOCYTES 5 % (0-8); NEUTROPHILS 61 % (35-75); PLATELET CLUMPS SMALL AMT; PLATELET ESTIMATE NORMAL (NORMAL)
[2017-04-29 20:51] LABS: OSMOLALITY SERUM 288 MOSM/KG (275-295)
[2017-04-29 21:01] LABS: ALBUMIN/GLOBULIN RATIO 1.21 (1.00-1.93); ALKALINE PHOSPHATASE 62 U/L (45-117); ALT/SGPT 17 U/L (12-78); ANION GAP 4 MEQ/L (8-16); AST/SGOT 14 U/L (7-37); BILIRUBIN,DIRECT 0.1 MG/DL (0.0-0.2); BILIRUBIN,TOTAL 0.4 MG/DL (0.2-1.0); BLOOD UREA NITROGEN 7 MG/DL (7-18); CALCIUM LEVEL 8.8 MG/DL (8.5-10.1); CARBON DIOXIDE LEVEL 33 MEQ/L (21-32); CHLORIDE LEVEL 104 MEQ/L (98-107); CPK CREATINE PHOSPHOKINASE 123 U/L (39-308); CREATININE FOR GFR 0.78 MG/DL (0.70-1.30); GLOMERULAR FILTRATION RATE > 60.0 (>60); GLUCOSE, FASTING 85 MG/DL (70-105); POTASSIUM SERUM 3.7 MEQ/L (3.5-5.1); SALICYLATE LEVEL 3.7 MG/DL (5.0-30.0); SODIUM LEVEL 141 MEQ/L (136-145); TOTAL PROTEIN 7.3 GM/DL (6.4-8.2); TROPONIN I < 0.02 NG/ML (< 0.10)
[2017-04-29 21:07] LABS: CK-MB VALUE MASS 1.5 NG/ML (0.0-3.6); MB/CK RELATIVE INDEX 1.21 (< OR =4)
[2017-04-29 21:12] LABS: ACETAMINOPHEN LEVEL < 2.0 UG/ML (10.0-30.0); ETHYL ALCOHOL (ETHANOL) < 0.003 % (0.000-0.010)
[2017-04-29 21:54] LABS: AMPHETAMINES LEVEL URINE NEGATIVE (NEGATIVE); BARBITURATES URINE NEGATIVE (NEGATIVE); BENZODIAZEPINES URINE NEGATIVE (NEGATIVE); CANNABINOIDS URINE POSITIVE (NEGATIVE); COCAINE METABOLITE URINE NEGATIVE (NEGATIVE); METHADONE URINE NEGATIVE (NEGATIVE); OPIATES URINE NEGATIVE (NEGATIVE); PHENCYCLIDINE URINE NEGATIVE (NEGATIVE)
[2017-04-29] MEDS: LORazepam 2 MG/ML VIAL (J2060) IV ×2 (22:59)
[2017-04-30] MEDS ORDERED: ACETAMINOPHEN TAB 650MG DOSE (2X325MG) PO ×2 (05:45)
[2017-04-30] MEDS ORDERED: ONDANSETRON 4MG/2ML VIAL (J2405) IV ×2 (05:45)
== END 2017-04-30 09:52 | disposition home or self-care (01) ==
LOC: M ED INP 04-30 05:45 → M ED 19:09
DX: F12.120 Cannabis abuse with intoxication, uncomplicated (principal); R00.0 Tachycardia, unspecified; J45.909 Unspecified asthma, uncomplicated; F90.9 Attention-deficit hyperactivity disorder, unspecified type; F11.90 Opioid use, unspecified, uncomplicated; F13.90 Sedative, hypnotic, or anxiolytic use, unspecified, uncomplicated; F17.210 Nicotine dependence, cigarettes, uncomplicated
CPT/HCPCS: J2060

== ENCOUNTER 2019-08-18 13:41 | Emergency (ER) | payer SELFPAY ==
[~2019-08-18] VITALS: Ht 180.3 cm; Wt 70.5 kg
[~2019-08-18 13:41] MED LIST changes: -ADDE30CA PO; +ADDE30CA3 PO; +AFRI0.056; +ALBU17IN2 INH; +AUGM875T28 PO; +FLON1SPR; +SUDA30TA PO
--- NOTE | 2019-08-18 14:36 | REP ---
REASON FOR EXAM: Drug overdose. COMPARISON: 04/29/2017 FINDINGS: The technique utilized in obtaining the radiograph has magnified the cardiac silhouette and accentuated the interstitial markings. The superior mediastinal structures are midline. The cardiac silhouette is unremarkable in size, shape, and position. The diaphragmatic surfaces of the lungs are regular, and the costophrenic angles are clear. The pulmonary caba are clear. The imaged osseous structures are intact. IMPRESSION: There is no acute cardiopulmonary disease. Electronically Signed by Emre Tinajero DO 08/18/2019 04:05 P
[2019-08-18 19:02] VITALS: BP 156/84
--- NOTE | 2019-08-20 08:46 | ECGEPIP ---
[facility] - ED Test Date: 2019-08-18 Pat Name: FANNY BEARD Department: Room: - Gender: Male [place] Machine Operator: primo : 1995 Requested By: Adriana Rodriguez Order Number: [id number] Reading MD: Adriana Rodriguez Measurements Intervals [place] Rate: 86 P: 55 DE: 156 QRS: 50 QRSD: 101 T: 16 QT: 354 QTc: 425 Interpretive Statements SINUS RHYTHM POSSIBLE INFERIOR MYOCARDIAL INFARCTION, PROBABLY OLD PROBABLE EARLY REPOLARIZATION, CLINICAL CORRELATION DECREASED RATE 04/29/17 Electronically Signed on 08-20-2019 8:46:46 EDT by Adriana Rodriguez
== END 2019-08-18 19:06 | disposition home or self-care (01) ==
LOC: M ED 13:41
DX: F19.10 Other psychoactive substance abuse, uncomplicated (principal); J45.909 Unspecified asthma, uncomplicated; F17.200 Nicotine dependence, unspecified, uncomplicated

== ENCOUNTER 2019-11-14 12:49 | Emergency (ER) | payer SELFPAY ==
[~2019-11-14 12:49] MED LIST changes: +NALOXONE INJ 0.4MG/1ML VIAL (J2310 PER 1MG) As Ordered ONE; +NALOXONE INJ 0.4MG/1ML VIAL (J2310 PER 1MG) ONE
[2019-12-21 17:08] LABS: BASO # 0.1 10^3/uL (0.0-0.2); BASO % 0.4 % (0.0-1.0); EOS # 0.1 10^3/uL (0.0-0.5); EOS % 0.4 % (0.0-3.0); HEMATOCRIT 42.5 % (42.0-52.0); LYMPH # 1.4 10^3/uL (1.5-5.0); LYMPH % 10.6 % (24.0-44.0); MEAN CORPUSCULAR HEMOGLOBIN 30.2 pg (27.0-33.0); MEAN CORPUSCULAR HGB CONC 32.9 g/dl (32.0-36.5); MEAN CORPUSCULAR VOLUME 91.8 fl (80.0-96.0); MONO # 1.3 10^3/uL (0.0-0.8); MONO % 9.5 % (0.0-5.0); NEUTROPHILS # 10.6 10^3/uL (1.5-8.5); NEUTROPHILS % 78.5 % (36.0-66.0); PLATELET COUNT, AUTOMATED 270 10^3/uL (150-450); RED BLOOD COUNT 4.63 10^6/uL (4.30-6.10); WHITE BLOOD COUNT 13.5 10^3/uL (4.0-10.0)
[2020-01-24 11:45] LABS: AMPHETAMINES LEVEL URINE POSITIVE (NEGATIVE); BARBITURATES URINE NEGATIVE (NEGATIVE); BENZODIAZEPINES URINE NEGATIVE (NEGATIVE); CANNABINOIDS URINE POSITIVE (NEGATIVE); COCAINE METABOLITE URINE NEGATIVE (NEGATIVE); METHADONE URINE NEGATIVE (NEGATIVE); OPIATES URINE POSITIVE (NEGATIVE); PHENCYCLIDINE URINE NEGATIVE (NEGATIVE)
[2020-01-24 11:46] LABS: ACETAMINOPHEN LEVEL < 2.0 UG/ML (10.0-30.0); ALBUMIN 3.7 GM/DL (3.2-5.2); ALT/SGPT 25 U/L (12-78); BILIRUBIN,DIRECT 0.1 MG/DL (0.0-0.2); BILIRUBIN,TOTAL 0.3 MG/DL (0.2-1.0); BLOOD UREA NITROGEN 6 MG/DL (7-18); CARBON DIOXIDE LEVEL 31 MEQ/L (21-32); CHLORIDE LEVEL 105 MEQ/L (98-107); CK-MB VALUE MASS 2.8 NG/ML (<3.6); CPK CREATINE PHOSPHOKINASE 138 U/L (39-308); CREATININE FOR GFR 1.03 MG/DL (0.70-1.30); GLOMERULAR FILTRATION RATE > 60.0 (>60); GLUCOSE, FASTING 110 MG/DL (70-100); MB/CK RELATIVE INDEX 2.03 (< OR =4); POTASSIUM SERUM 3.8 MEQ/L (3.5-5.1); SALICYLATE LEVEL < 1.7 MG/DL (5.0-30.0); SODIUM LEVEL 137 MEQ/L (136-145); TOTAL PROTEIN 6.9 GM/DL (6.4-8.2); TROPONIN I 0.02 NG/ML (< 0.10)
== END 2019-11-14 16:26 | disposition home or self-care (01) ==
LOC: M ED 12:49
DX: F11.129 Opioid abuse with intoxication, unspecified (principal); F15.10 Other stimulant abuse, uncomplicated; F17.210 Nicotine dependence, cigarettes, uncomplicated
CPT/HCPCS: 80048; 80076; 80307; 82550; 82553; 84443; 84484; 85025; 96374; 99284; G0480; J2310

== ENCOUNTER → 2020-07-05 | Outpatient (REF) | payer OTHER ==
[~2020-07-05] MED LIST changes: -NALOXONE INJ 0.4MG/1ML VIAL (J2310 PER 1MG) As Ordered ONE; -NALOXONE INJ 0.4MG/1ML VIAL (J2310 PER 1MG) ONE
== END ==
LOC: M LAB REF 11:49
PROVIDERS: ATTEND Surgery
DX: U07.1 COVID-19 (principal)

== ENCOUNTER 2021-05-15 17:29 | Emergency (ER) | payer OTHER, SELFPAY ==
[~2021-05-15] VITALS: Ht 182.9 cm; Wt 73.5 kg
[2021-05-15 19:36] LABS: BASO % 0.5 % (0.0-1.0); EOS # 0.1 10^3/uL (0.0-0.5); EOS % 0.7 % (0.0-3.0); HEMATOCRIT 44.5 % (42.0-52.0); HEMOGLOBIN 14.6 g/dl (13.5-17.5); LYMPH # 2.1 10^3/uL (1.5-5.0); LYMPH % 24.7 % (24.0-44.0); MEAN CORPUSCULAR HEMOGLOBIN 29.4 pg (27.0-33.0); MEAN CORPUSCULAR HGB CONC 32.8 g/dl (32.0-36.5); MEAN CORPUSCULAR VOLUME 89.5 fl (80.0-96.0); MONO # 0.6 10^3/uL (0.0-0.8); MONO % 7.1 % (2.0-8.0); NEUTROPHILS # 5.8 10^3/uL (1.5-8.5); NEUTROPHILS % 66.7 % (36.0-66.0); PLATELET COUNT, AUTOMATED 292 10^3/uL (150-450); RED BLOOD COUNT 4.97 10^6/uL (4.30-6.10); WHITE BLOOD COUNT 8.7 10^3/uL (4.0-10.0)
[2021-05-15 20:15] LABS: AMPHETAMINES LEVEL URINE POSITIVE (NEGATIVE); BARBITURATES URINE NEGATIVE (NEGATIVE); BENZODIAZEPINES URINE NEGATIVE (NEGATIVE); CANNABINOIDS URINE POSITIVE (NEGATIVE); COCAINE METABOLITE URINE NEGATIVE (NEGATIVE); METHADONE URINE NEGATIVE (NEGATIVE); OPIATES URINE POSITIVE (NEGATIVE); PHENCYCLIDINE URINE NEGATIVE (NEGATIVE)
[2021-05-15] MEDS ORDERED: HOME MED LIST COMPLETE! XX SCH (20:20)
[2021-05-15 20:26] LABS: ACETAMINOPHEN LEVEL < 2.0 UG/ML (10.0-30.0); ALBUMIN 3.8 GM/DL (3.2-5.2); ALT/SGPT 17 U/L (12-78); BILIRUBIN,DIRECT < 0.1 MG/DL (0.0-0.2); BILIRUBIN,TOTAL 0.2 MG/DL (0.2-1.0); BLOOD UREA NITROGEN 12 MG/DL (7-18); CALCIUM LEVEL 9.3 MG/DL (8.5-10.1); CARBON DIOXIDE LEVEL 32 MEQ/L (21-32); CHLORIDE LEVEL 104 MEQ/L (98-107); CREATININE FOR GFR 0.99 MG/DL (0.70-1.30); ETHYL ALCOHOL (ETHANOL) 0.003 % (0.000-0.010); GLOMERULAR FILTRATION RATE > 60.0 (>60); GLUCOSE, FASTING 90 MG/DL (70-100); POTASSIUM SERUM 4.6 MEQ/L (3.5-5.1); SALICYLATE LEVEL 2.4 MG/DL (5.0-30.0); SODIUM LEVEL 139 MEQ/L (136-145); TOTAL PROTEIN 7.2 GM/DL (6.4-8.2)
[2021-05-15 21:30] VITALS: BP 160/70
== END 2021-05-15 21:50 | disposition home or self-care (01) ==
LOC: M ED 17:29
DX: T40.1X1A Poisoning by heroin, accidental (unintentional), initial encounter (principal); J45.909 Unspecified asthma, uncomplicated; F17.200 Nicotine dependence, unspecified, uncomplicated

== ENCOUNTER 2021-09-13 18:50 | Inpatient (IN) | payer MEDICAID, SELFPAY ==
[~2021-09-13] VITALS: Ht 182.9 cm; Wt 72.2 kg
[2021-09-13] MEDS ORDERED: NS 1,000 ML IV ONE (19:20)
[2021-09-13] MEDS ORDERED: PIPERACILLIN/TAZOBACTAM SOD 4.5 GM in D5W MINI-BAG PLUS 50 ML IV ONE (20:05)
[2021-09-13] MEDS ORDERED: NS 980 ML in IV 1 EA IV ONE (20:05)
[2021-09-13 20:26] LABS: HEMATOCRIT 38.7 % (42.0-52.0); HEMOGLOBIN 13.6 g/dl (13.5-17.5); MEAN CORPUSCULAR HEMOGLOBIN 30.5 pg (27.0-33.0); MEAN CORPUSCULAR HGB CONC 35.1 g/dl (32.0-36.5); MEAN CORPUSCULAR VOLUME 86.8 fl (80.0-96.0); PLATELET COUNT, AUTOMATED 205 10^3/uL (150-450); RED BLOOD COUNT 4.46 10^6/uL (4.30-6.10); WHITE BLOOD COUNT 16.5 10^3/uL (4.0-10.0)
[2021-09-13 20:44] LABS: OSMOLALITY SERUM 280 MOSM/KG (275-295)
[2021-09-13 20:50] LABS: CK-MB VALUE MASS 1.4 NG/ML (<3.6); MB/CK RELATIVE INDEX 0.73 (< OR =4)
[2021-09-13 20:52] LABS: ABG HCO3 22.5 MEQ/L (22.0-26.0); ABG O2 SATURATION 98.2 % (95.0-99.0); ABG PARTIAL PRESSURE CO2 30.3 mmHg (35.0-45.0); ABG PARTIAL PRESSURE O2 105.7 mmHg (75.0-100.0); ABG STANDARD HCO3 24.5 MEQ/L (22.0-26.0); ABG TOTAL CO2 23.4 MEQ/L (22.0-29.0); ABG pH (ARTERIAL) 7.488 UNITS (7.350-7.450)
[2021-09-13 20:57] LABS: ACETAMINOPHEN LEVEL 12.8 UG/ML (10.0-30.0); ALBUMIN 2.9 GM/DL (3.2-5.2); ALT/SGPT 145 U/L (12-78); BILIRUBIN,DIRECT 1.4 MG/DL (0.0-0.2); BLOOD UREA NITROGEN 28 MG/DL (7-18); CALCIUM LEVEL 8.9 MG/DL (8.5-10.1); CARBON DIOXIDE LEVEL 25 MEQ/L (21-32); CHLORIDE LEVEL 100 MEQ/L (98-107); CREATININE FOR GFR 1.65 MG/DL (0.70-1.30); GLUCOSE, FASTING 105 MG/DL (70-100); LYMPHOCYTES 1 % (16-44); MONOCYTES 1 % (0-5); NEUTROPHILS 97 % (28-66); POTASSIUM SERUM 4.1 MEQ/L (3.5-5.1); SALICYLATE LEVEL < 1.7 MG/DL (5.0-30.0); SODIUM LEVEL 135 MEQ/L (136-145); THYROID STIMULATING HORMONE 0.767 uIU/ML (0.358-3.740); TOTAL PROTEIN 5.9 GM/DL (6.4-8.2); TOXIC VACUOLATION 1+
[2021-09-13 20:58] LABS: ETHYL ALCOHOL (ETHANOL) < 0.003 % (0.000-0.010); PLATELET ESTIMATE NORMAL (NORMAL)
[2021-09-13 20:58] LABS: AMPHETAMINES LEVEL URINE POSITIVE (NEGATIVE); BARBITURATES URINE NEGATIVE (NEGATIVE); BENZODIAZEPINES URINE NEGATIVE (NEGATIVE); CANNABINOIDS URINE POSITIVE (NEGATIVE); COCAINE METABOLITE URINE NEGATIVE (NEGATIVE); METHADONE URINE NEGATIVE (NEGATIVE); OPIATES URINE POSITIVE (NEGATIVE); PHENCYCLIDINE URINE NEGATIVE (NEGATIVE)
[2021-09-13] MEDS ORDERED: IBUP-1022 PO (21:14)
[2021-09-13] MEDS ORDERED: ACET500P3 PO (21:14)
[2021-09-13] MEDS ORDERED: NOREPINEPHRINE BITARTRATE 8 MG in D5W 492 ML IV SCH (22:05)
[2021-09-13] MEDS ORDERED: ACETAMINOPHEN TAB 650MG DOSE (2X325MG) PO ONE (22:10)
[2021-09-13 22:21] LABS: LIPASE 59 U/L (73-393)
[2021-09-13] MEDS ORDERED: ALBU8.5H INH (23:34)
[2021-09-13] MEDS ORDERED: ACET-897 PO (23:34)
[2021-09-13] MEDS ORDERED: IBUP-1764 PO (23:34)
[2021-09-13] MEDS ORDERED: CETI-24 PO (23:34)
[2021-09-13] MEDS ORDERED: HOME MED LIST COMPLETE! XX SCH (23:35)
[2021-09-13 23:50] LABS: INR 1.27; PROTHROMBIN TIME 16.3 SECONDS (12.7-14.5)
[2021-09-14] VITALS (77 sets, daily range): BP systolic 73–127; BP diastolic 35–72
[2021-09-14] MEDS ORDERED: VANCOMYCIN HCL 1,000 MG, VIAL MATE ADAPTER 1 EACH in NS 250 ML IV ONE ×3
[2021-09-14] MEDS: LR 1,000 ML IV SCH ×3 (00:17→18:49)
[2021-09-14] MEDS ORDERED: VANCOMYCIN HCL 500 MG in D5W MINI-BAG PLUS 100 ML IV ONE (01:00)
[2021-09-14] MEDS: PIPERACILLIN/TAZOBACTAM SOD 4.5 GM in D5W MINI-BAG PLUS 50 ML IV SCH ×4 (02:04→19:52)
[2021-09-14 04:32] LABS: HEMOGLOBIN 12.7 g/dl (13.5-17.5); MEAN CORPUSCULAR HEMOGLOBIN 29.7 pg (27.0-33.0); MEAN CORPUSCULAR HGB CONC 34.3 g/dl (32.0-36.5); MEAN CORPUSCULAR VOLUME 86.7 fl (80.0-96.0); PLATELET COUNT, AUTOMATED 165 10^3/uL (150-450); RED BLOOD COUNT 4.27 10^6/uL (4.30-6.10); WHITE BLOOD COUNT 19.5 10^3/uL (4.0-10.0)
[2021-09-14] MEDS ORDERED: GLUCAGON INJ 1MG VIAL SC PRN (04:50)
[2021-09-14] MEDS ORDERED: GLUCOSE 4GM CHEW TABLET PO PRN (04:50)
[2021-09-14] MEDS ORDERED: DEXTROSE 50% 50 ML SYRINGE IV PRN (04:50)
[2021-09-14 04:51] LABS: ALBUMIN 2.6 GM/DL (3.2-5.2); ALT/SGPT 119 U/L (12-78); BILIRUBIN,TOTAL 1.8 MG/DL (0.2-1.0); BLOOD UREA NITROGEN 26 MG/DL (7-18); CALCIUM LEVEL 7.8 MG/DL (8.5-10.1); CARBON DIOXIDE LEVEL 25 MEQ/L (21-32); CHLORIDE LEVEL 108 MEQ/L (98-107); CREATININE FOR GFR 1.28 MG/DL (0.70-1.30); GLOMERULAR FILTRATION RATE > 60.0 (>60); GLUCOSE, FASTING 80 MG/DL (70-100); MAGNESIUM LEVEL 1.7 MG/DL (1.8-2.4); POTASSIUM SERUM 3.9 MEQ/L (3.5-5.1); SODIUM LEVEL 139 MEQ/L (136-145); TOTAL PROTEIN 5.6 GM/DL (6.4-8.2)
[2021-09-14 05:01] LABS: LYMPHOCYTES 3 % (16-44); MONOCYTES 7 % (0-5); NEUTROPHILS 88 % (28-66)
[2021-09-14 05:02] LABS: ANISOCYTOSIS 1+; PLATELET ESTIMATE NORMAL (NORMAL); POLYCHROMASIA 1+
[2021-09-14] MEDS: HEPARIN SOD (PORCINE) 5000UNITS/ML 1ML VIAL/SYRINGE SC SCH ×3 (05:06→21:02)
[2021-09-14 05:19] LABS: CREATININE,RANDOM URINE 48.7 MG/DL; SODIUM,RANDOM URINE < 10 MEQ/L
[2021-09-14 08:53] LABS: HEPATITIS B CORE ANTIBODY IGM NEGATIVE (NEGATIVE); HEPATITIS B SURFACE ANTIGEN NEGATIVE (NEGATIVE)
[2021-09-14 08:54] LABS: HEPATITIS C VIRUS ABY INDEX > 11.0 INDEX (<0.8)
[2021-09-14] MEDS: NOREPINEPHRINE BITARTRATE 8 MG in D5W 492 ML IV SCH (09:23)
[2021-09-14] MEDS: VANCOMYCIN HCL 1,000 MG, VIAL MATE ADAPTER 1 EACH in NS 250 ML IV SCH ×2 (10:08→21:02)
[2021-09-14 11:07] LABS: ALBUMIN 2.6 GM/DL (3.2-5.2); ALT/SGPT 108 U/L (12-78); BILIRUBIN,TOTAL 1.2 MG/DL (0.2-1.0); BLOOD UREA NITROGEN 25 MG/DL (7-18); CALCIUM LEVEL 7.4 MG/DL (8.5-10.1); CARBON DIOXIDE LEVEL 23 MEQ/L (21-32); CHLORIDE LEVEL 108 MEQ/L (98-107); CREATININE FOR GFR 1.24 MG/DL (0.70-1.30); GLOMERULAR FILTRATION RATE > 60.0 (>60); GLUCOSE, FASTING 71 MG/DL (70-100); POTASSIUM SERUM 3.6 MEQ/L (3.5-5.1); SODIUM LEVEL 138 MEQ/L (136-145); TOTAL PROTEIN 5.2 GM/DL (6.4-8.2)
[2021-09-14] MEDS ORDERED: LR 1,000 ML IV ONE (13:25)
[2021-09-14] MEDS ORDERED: MORPHINE 2 MG/ML 1ML VIAL IV ONE (13:50)
[2021-09-14] MEDS ORDERED: LORazepam 2 MG/ML VIAL IV STA (16:47)
[2021-09-14] MEDS ORDERED: METHADONE 10MG TAB PO ONE (21:40)
[2021-09-14] MEDS: SENNA 8.6 MG TAB (SENOKOT) PO SCH (22:21)
[2021-09-15] VITALS (18 sets, daily range): BP systolic 112–137; BP diastolic 61–86
[2021-09-15] MEDS: NOREPINEPHRINE BITARTRATE 8 MG in D5W 492 ML IV SCH (00:38)
[2021-09-15] MEDS: PIPERACILLIN/TAZOBACTAM SOD 4.5 GM in D5W MINI-BAG PLUS 50 ML IV SCH ×4 (02:05→20:56)
[2021-09-15] MEDS: LR 1,000 ML IV SCH ×3 (02:36→16:55)
[2021-09-15] MEDS ORDERED: LORazepam 2 MG/ML VIAL IV ONE (05:00)
[2021-09-15] MEDS: HEPARIN SOD (PORCINE) 5000UNITS/ML 1ML VIAL/SYRINGE SC SCH ×3 (05:01→21:19)
[2021-09-15 05:37] LABS: HEMATOCRIT 34.3 % (42.0-52.0); HEMOGLOBIN 11.6 g/dl (13.5-17.5); MEAN CORPUSCULAR HEMOGLOBIN 29.6 pg (27.0-33.0); MEAN CORPUSCULAR HGB CONC 33.8 g/dl (32.0-36.5); MEAN CORPUSCULAR VOLUME 87.5 fl (80.0-96.0); PLATELET COUNT, AUTOMATED 110 10^3/uL (150-450); RED BLOOD COUNT 3.92 10^6/uL (4.30-6.10); WHITE BLOOD COUNT 21.5 10^3/uL (4.0-10.0)
[2021-09-15 05:53] LABS: ALBUMIN 2.4 GM/DL (3.2-5.2); ALT/SGPT 74 U/L (12-78); BILIRUBIN,TOTAL 0.6 MG/DL (0.2-1.0); BLOOD UREA NITROGEN 12 MG/DL (7-18); CALCIUM LEVEL 7.7 MG/DL (8.5-10.1); CARBON DIOXIDE LEVEL 29 MEQ/L (21-32); CHLORIDE LEVEL 112 MEQ/L (98-107); CREATININE FOR GFR 0.99 MG/DL (0.70-1.30); GLOMERULAR FILTRATION RATE > 60.0 (>60); GLUCOSE, FASTING 111 MG/DL (70-100); MAGNESIUM LEVEL 1.9 MG/DL (1.8-2.4); POTASSIUM SERUM 3.5 MEQ/L (3.5-5.1); SODIUM LEVEL 143 MEQ/L (136-145)
[2021-09-15 07:21] LABS: LYMPHOCYTES 8 % (16-44); MONOCYTES 4 % (0-5); NEUTROPHILS 79 % (28-66)
[2021-09-15 07:22] LABS: ANISOCYTOSIS 1+; PLATELET ESTIMATE DECREASED (NORMAL)
[2021-09-15] MEDS: VANCOMYCIN HCL 1,000 MG, VIAL MATE ADAPTER 1 EACH in NS 250 ML IV SCH ×2 (10:23→17:05)
[2021-09-15] MEDS ORDERED: LORazepam 1 MG TAB PO PRN (11:10)
[2021-09-15] MEDS: METHADONE 5MG TAB PO PRN ×2 (12:35→20:56)
[2021-09-15 19:07] LABS: HEPATITIS C QUANTITATION HCV Not Detected IU/mL (.)
[2021-09-15] MEDS: SENNA 8.6 MG TAB (SENOKOT) PO SCH (21:00)
[2021-09-16] VITALS: BP 129/72
[2021-09-16] MEDS: LR 1,000 ML IV SCH ×2 (01:52→10:05)
[2021-09-16] MEDS: PIPERACILLIN/TAZOBACTAM SOD 4.5 GM in D5W MINI-BAG PLUS 50 ML IV SCH ×2 (02:00→08:49)
[2021-09-16] MEDS: VANCOMYCIN HCL 1,000 MG, VIAL MATE ADAPTER 1 EACH in NS 250 ML IV SCH ×2 (02:12→10:04)
[2021-09-16 04:00] VITALS: BP 133/74
[2021-09-16] MEDS: HEPARIN SOD (PORCINE) 5000UNITS/ML 1ML VIAL/SYRINGE SC SCH (06:00)
[2021-09-16 06:24] LABS: HEMATOCRIT 33.2 % (42.0-52.0); HEMOGLOBIN 11.3 g/dl (13.5-17.5); MEAN CORPUSCULAR HEMOGLOBIN 30.1 pg (27.0-33.0); MEAN CORPUSCULAR VOLUME 88.3 fl (80.0-96.0); PLATELET COUNT, AUTOMATED 102 10^3/uL (150-450); RED BLOOD COUNT 3.76 10^6/uL (4.30-6.10)
[2021-09-16 07:25] LABS: ATYPICAL LYMPH 4 % (0-5); LYMPHOCYTES 11 % (16-44); NEUTROPHILS 85 % (28-66)
[2021-09-16 07:33] LABS: PLATELET ESTIMATE DECREASED (NORMAL)
[2021-09-16 07:54] LABS: ALBUMIN 2.2 GM/DL (3.2-5.2); ALT/SGPT 52 U/L (12-78); BILIRUBIN,TOTAL 0.4 MG/DL (0.2-1.0); BLOOD UREA NITROGEN 6 MG/DL (7-18); CALCIUM LEVEL 8.4 MG/DL (8.5-10.1); CARBON DIOXIDE LEVEL 26 MEQ/L (21-32); CHLORIDE LEVEL 113 MEQ/L (98-107); CREATININE FOR GFR 0.93 MG/DL (0.70-1.30); GLOMERULAR FILTRATION RATE > 60.0 (>60); GLUCOSE, FASTING 119 MG/DL (70-100); MAGNESIUM LEVEL 1.7 MG/DL (1.8-2.4); POTASSIUM SERUM 3.6 MEQ/L (3.5-5.1); SODIUM LEVEL 145 MEQ/L (136-145)
[2021-09-16 08:00] VITALS: BP 121/64
[2021-09-16] MEDS ORDERED: MAG SULF 1GM/100ML (MAG RUN) 1 GM in IV 1 EA IV ONE (10:00)
[2021-09-16 10:28] LABS: C REACTIVE PROTEIN QUANTITATIV 6.74 MG/DL (0.00-0.30)
[2021-09-16] MEDS: METHADONE 5MG TAB PO PRN (10:32)
[2021-09-16] MEDS ORDERED: CEPACOL LOZENGE PO PRN (10:40)
[2021-09-16] MEDS ORDERED: BACT800T5 PO (10:54)
[2021-09-16] MEDS ORDERED: AMOX875T2 PO (10:56)
== END 2021-09-16 11:08 | disposition left against medical advice (07) | DRG 720 ==
LOC: M ED 18:50 → M ED INP 23:18 → ENRESERV 23:54 → M ICU 09-14 00:41
PROVIDERS: ADMIT Family Medicine; ATTEND Family Medicine
DX: A41.9 Sepsis, unspecified organism (principal); R65.21 Severe sepsis with septic shock; G93.41 Metabolic encephalopathy; N17.9 Acute kidney failure, unspecified; F17.210 Nicotine dependence, cigarettes, uncomplicated; J45.909 Unspecified asthma, uncomplicated; M79.10 Myalgia, unspecified site; R74.01 Elevation of levels of liver transaminase levels; Z79.899 Other long term (current) drug therapy; F11.90 Opioid use, unspecified, uncomplicated; F12.90 Cannabis use, unspecified, uncomplicated